=== PATIENT | female | born 1930 | race Caucasian/White ===

== ENCOUNTER 2017-08-15 10:46 | Inpatient (IN) ==
[2017-08-15] MEDS ORDERED: SALINE FLUSH 10ml SYRINGE IVF PRN (11:04)
--- NOTE | 2017-08-15 11:09 | Emergency Department Report ---
Fall HPI - General Chief Complaint: Medical Emergency Stated Complaint: Falls Time Seen by Provider: 08/15/17 10:49 Source: patient, family, EMS, RN notes reviewed, old records reviewed Mode of arrival: EMS Limitations: no limitations - History of Present Illness HPI Narrative: 86yo woman presented to the ER by EMS for evaluation after a fall. Pt has fallen 3x in the last 24 hrs at her NH. Last fall was just prior to arrival. Pt has a h/o a-fib and CHF. Is scheduled for an ablation next month. Was recently placed on lasix and metoprolol. 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 complaint: fall Onset (ago): hour(s) Fall from: standing Fall witnessed: yes, by family Place fall occurred: home Loss of consciousness: none Prolonged down time: no Symptoms prior to fall: lightheadedness, dizziness Context: new medication Associated symptoms (after fall): denies - Related Data Home Medications Medication Instructions Recorded Confirmed Acetaminophen [Acetaminophen Extra 1,000 mg PO BID PRN 08/15/17 08/15/17 Strength] CephALEXin [Keflex 500 mg] 500 mg PO UNK 08/15/17 08/15/17 Chlorthalidone 25 mg PO DAILY 08/15/17 08/15/17 Furosemide [Lasix 20 mg Tab] 20 mg PO DAILY 08/15/17 08/15/17 METHOTREXATE 2.5mg TAB 20 mg PO WEEKLY 08/15/17 08/15/17 [Methotrexate] Metoprolol Tartrate 50 mg PO BID 08/15/17 08/15/17 Potassium Chloride [K-DUR 10 mEq 10 meq PO DAILY 08/15/17 08/15/17 Tablet] dilTIAZem HCl [Dilt-Xr] 180 mg PO DAILY 08/15/17 08/15/17 Previous Rx's Medication Instructions Recorded Apixaban [Eliquis] 2.5 mg PO BID #60 tab 04/21/17 Nitroglycerin [Nitrostat] 0.4 mg SL Q5MIN3 PRN #20 tab 04/21/17 Allergies Allergy/AdvReac Type Severity Reaction Status Date / Time penicillamine Allergy Intermediate DESTROYED Verified 08/15/17 14:34 WHITE CELLS Review of Systems All systems: reviewed and negative except as stated (3 falls in the last 12 hours) [facility] Patient Stated Medical History Cardiac Arrhythmia Yes: AFib Gastroesophageal Reflux Yes Disease Osteoarthritis Yes Other Musculoskeletal Yes: Rheumatoid arthritis Shingles Yes: Winter 2015 Surgical History: Bilateral mastectomy. Bilateral knee replacements - Social History Smoking status: Never smoker Substance use type: does not use Alcohol intake frequency: does not drink Household members: spouse Current occupational status: retired Current residence: Apartment/Private Home Physical Exam - Limitations Limitations: no limitations - General General appearance: alert, in no apparent distress - Normal Exams: Head:: Normocephalic without trauma Eyes:: Pupils are PERRLA w/ EOMI, No scleral icterus, irritation, or foreign bodies noted ENMT:: No facial trauma, nasal exudates, pharyngeal erythema, or exudates are noted Neck:: Full range of motion, without adenopathy Lymphatic:: No lymphadenopathy Musculoskeletal:: No tenderness Integumentary:: No rashes, hives, or bruising noted Neurological:: Patient is alert, and oriented Psychiatric:: Patient exhibits, appropriate attention - Chest Chest inspection: Present: normal inspection, symmetric chest wall rise. Absent : tenderness, rash - Respiratory Respiratory exam: Present: normal lung sounds bilaterally. Absent: respiratory distress, wheezes, stridor, prolonged expiratory phase, crackles - Cardiovascular Cardiovascular exam: Present: regular rate, irregular rhythm (A-fib), normal heart sounds, +S1, +S2. Absent: normal rhythm, systolic murmur, diastolic murmur, rubs, gallop, clicks, +S3, +S4 Course - Consultations Consultation #1: Dr. José: Pts renal fx is stable, based on labs today. is a great resource, but has had some noticeable decline recently. Would lean towards observation with re-eval of current medication regimen. Time: 13:06 Consultation #2: Hospitalist: Will admit for obs and electrolyte correction. Time: 13:27 Vital Signs Temperature 98.7 F 08/15/17 10:48 Pulse Rate 121 H 08/15/17 10:48 Respiratory Rate 18 08/15/17 10:48 Blood Pressure 137/76 08/15/17 10:48 Pulse Oximetry 96 08/15/17 10:48 Temperature 98.1 F 08/15/17 14:16 Pulse Rate 94 08/15/17 14:16 Respiratory Rate 16 08/15/17 14:16 Blood Pressure 129/62 08/15/17 14:16 Pulse Oximetry 96 08/15/17 14:16 Fall - MDM Narrative Medical decision making narrative: Pt with hypokalemia, hypochloremia, and orthostatic hypotension. Discussed pt with PCM, who recommended observation and electrolyte replacement with ?med adjustment. Discussed with hospitalist, who agreed to admit for electrolyte replacement and review of meds. - Differential Diagnosis Likely: syncope (Electrolyte abn, Dehydration, arrhythmia) - Medical Records Attestation: I reviewed the patient's medical records. - Lab Data Attestation: I reviewed the patient's lab results. Result diagrams: 08/15/17 11:13 08/15/17 11:13 Lab Results 08/15/17 08/15/17 08/15/17 Range/Units 11:13 11:13 12:35 WBC 5.8 (4.5-11.0) T/MM3 RBC 3.84 L (4.00-5.20) M/MM3 Hgb 12.2 (12-16) GM/DL Hct 37.1 (36-46) % MCV 96.6 (80-100) UM3 MCH 31.8 (26-34) UUG MCHC 32.9 (31-37) GM/DL RDW Std Deviation 54.0 H (36.9-50.2) FL Plt Count 216 (130-400) T/MM3 MPV 9.7 (9.4-12.4) UM3 Immature Gran % (Auto) 0.2 (0.0-0.5) % Neut % (Auto) 71.9 H (33-66) % Lymph % (Auto) 12.1 L (23-45) % [place] % (Auto) 15.4 H (0-9.0) % Eos % (Auto) 0.2 (0-4) % Baso % (Auto) 0.2 (0-2) % Neut # (Auto) 4.2 (1.8-7.7) T/MM3 Lymph # (Auto) 0.7 L (1-4.8) T/MM3 [place] # (Auto) 0.9 H (0-0.8) T/MM3 Eos # (Auto) 0.0 (0-0.5) T/MM3 Baso # (Auto) 0.0 (0-0.2) T/MM3 Abs Immat Gran (auto) 0.01 (0.00-0.03) T/MM3 Turbidity < 20 (0-20) Sodium 139 (134-144) MEQ/L Potassium 2.6 L* (3.6-5) MEQ/L Chloride 91 L (98-107) MEQ/L Carbon Dioxide 35 H (22-30) MEQ/L Anion Gap 13 (5-15) MEQ/L BUN 26.0 H (7-17) MG/DL Creatinine 0.8 (0.7-1.2) mg/dL GFR Calculation 68 BUN/Creatinine Ratio 33 H (6-26) RATIO Glucose 108 (65-110) MG/DL Calculated Osmolality 274 (261-280) MOSM/KG Calcium 10.5 H (8.4-10.2) MG/DL Icterus Index < 2 (0-7) Specimen Hemolysis < 15 (0-25) Ur Collection Type Urine, cath straight Urine Color Yellow (YELLOW) Urine Clarity Clear Urine pH 6.5 (5.0-8.0) Ur Specific [place] 1.015 (1.015-1.025) Urine Protein Negative (NEGATIVE) Urine Glucose (UA) Negative (NEGATIVE) Urine Ketones Negative (NEGATIVE) Urine Occult Blood Negative (NEGATIVE) Urine Nitrate Negative (NEGATIVE) Urine Bilirubin Negative (NEGATIVE) Urine Urobilinogen 0.2 (NORMAL) EU/DL Ur Leukocyte Esterase Negative (NEGATIVE) Urinalysis Comment Microscopic not ind. - Radiology Data Attestation: I reviewed the patient's radiology results. CXR: IMPRESSION: 1. Chronic emphysematous lung changes with changes suggesting an acute superimposed bronchitis. 2. Minimal acute infiltrate is suggested in the medial right lung base. 3. Bony thorax shows no obvious acute traumatic variation. - EKG Data EKG #1 EKG attestation: Yes: I reviewed and interpreted this EKG. EKG shows normal: axis, intervals Rate: tachycardia Rhythm: A.Fib Voltage: c/w LVH Interpretation: nonspecific ST-T wave changes Disposition Clinical Impression: Hypokalemia, Hypochloremia, Orthostatic hypotension Disposition: 02 To [facility] Condition: Improved Time of Disposition: 13:43 - Seen By: physician
--- NOTE | 2017-08-15 12:40 | XRay Report ---
EXAM: XR chest 1V HISTORY: Fall COMPARISON: Prior chest x-ray dated 04/20/2017 FINDINGS: The lung lemus are hyperinflated. There are increased interstitial markings bilaterally that appear chronic. There is increase in the central bronchovascular markings with peribronchial cuffing. Bronchiectasis is seen at the lung bases. There is a possible early acute infiltrate in the medial right lung base. The heart remains within normal limits size. There is no evidence mediastinal widening in the trachea is midline. The pulmonary vascularity is normal. The costophrenic angles are clear. The bony thorax is stable again showing degenerative changes and an old healed left proximal humerus fracture. No definite acute traumatic variation is identified involving the bony thorax. There are old healed left-sided rib fracture deformities. Surgical clips are again seen under the right hemidiaphragm. IMPRESSION: 1. Chronic emphysematous lung changes with changes suggesting an acute superimposed bronchitis. 2. Minimal acute infiltrate is suggested in the medial right lung base. 3. Bony thorax shows no obvious acute traumatic variation.. .
[2017-08-15] MEDS ORDERED: SALINE FLUSH 10ml SYRINGE IV ONE (14:01)
[2017-08-15] MEDS ORDERED: MIDAZOLAM 2mg/2ml INJECTION IVP ONE (14:01)
[2017-08-15] MEDS ORDERED: FentaNYL 100 MCG/2 ML INJECTION IVP ONE (14:01)
[2017-08-15 14:21] VITALS: BMI 22.5
--- NOTE | 2017-08-15 15:09 | History & Physical Report ---
History of Present Illness Date: 08/15/17 Chief complaint: "black out" HPI: Mirlande Sam is an 86 year old woman who sees Dr. Davis for A-fib, which was diagnosed on 04/20/17. She had a syncopal episode that day, during which she had nausea, diaphoresis, chest pain, and shortness of breath. She was admitted and had an echo which showed an EF of 65% and heart catheterization that was negative for significant coronary disease (stenting was not indicated) . She was started on Eliquis at that time, as well as a beta brigitte for rate control. She had been getting along well at home, until the evening of 08/14/17, when she vomited after eating a peanut butter sandwich. She did not have any chest pain, dyspnea, dizziness, or diaphoresis at that time. She went to bed, and twice during the night, as she was walking back to her bed from the bathroom , she "blacked out". Around 1000 on 08/15/17, as she was walking towards the table, it happened again. Unlike the March syncopal event, she had no prodrome at all. She believes that she was unconscious for about a minute each time. She felt a little short of breath when she awoke, but her dyspnea completely resolved after a few minutes. She has small abrasions to her right wrist, which she thinks she injured after passing out early this morning (she tends to bruise/bleed easily since she's on Eliquis). She occasionally has palpitations. She hasn't eaten anything today but denies abdominal pain or nausea. She admits to having a poor appetite, however. She denies any visual changes (ie blurred or double vision), headaches, paresthesias, or stroke-like symptoms. She has had a predominantly nonproductive cough for the last month, without associated fever/chills, congestion, or sore throat. She denies diarrhea or constipation. She denies dysuria. She has not had leg swelling. She recently finished up seeing PT for her back. She has joint deformities secondary to rheumatoid arthritis, for which she takes methotrexate. 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 Following the 3rd syncopal event, 911 was activated and she was transported to [facility] ED. She was tachycardic with a rate of 121 and was given NS bolus 500 mL. She was afebrile and normotensive. She was found to be severely hypokalemic at 2.6 and received oral potassium. CBC and UA were unremarkable. CXR showed possible bronchitis, possible acute infiltrate to right lung base. Her PCP, Dr. José, was contacted from the ED. Concerned about Mirlande' 's recent decline, combined with hypokalemia and syncopal events, recommended admission. Therefore, the hospitalist service was contacted and accepted the patient to observation status. 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 Davis - EF 65%, recommended medical management. Left breast biopsy (2010) - Dr. Summers. 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 Summers. Bilateral knee replacements. Bilateral hip replacements followed by bilateral hip reconstructive surgeries Family History Updates: Mother in her 90s of heart disease. Father also had heart disease and in his 80s. A younger brother has prostate cancer. 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 Davis Medications Home Medications Medication Instructions Recorded Confirmed Type Apixaban [Eliquis] 2.5 mg PO BID #60 tab 04/21/17 08/15/17 Rx Nitroglycerin [Nitrostat] 0.4 mg SL Q5MIN3 PRN #20 tab 04/21/17 08/15/17 Rx Acetaminophen [Acetaminophen Extra 1,000 mg PO BID PRN 08/15/17 08/15/17 History Strength] CephALEXin [Keflex 500 mg] 500 mg PO UNK 08/15/17 08/15/17 History Chlorthalidone 25 mg PO DAILY 08/15/17 08/15/17 History Furosemide [Lasix 20 mg Tab] 20 mg PO DAILY 08/15/17 08/15/17 History METHOTREXATE 2.5mg TAB 20 mg PO WEEKLY 08/15/17 08/15/17 History [Methotrexate] Metoprolol Tartrate 50 mg PO BID 08/15/17 08/15/17 History Potassium Chloride [K-DUR 10 mEq 10 meq PO DAILY 08/15/17 08/15/17 History Tablet] dilTIAZem HCl [Dilt-Xr] 180 mg PO DAILY 08/15/17 08/15/17 History Allergies Allergy/AdvReac Type Severity Reaction Status Date / Time penicillamine Allergy Intermediate DESTROYED Verified 08/15/17 14:34 WHITE CELLS Exam Vital Signs: Temperature 98.7 F 08/15/17 10:48 Pulse Rate 94 08/15/17 14:00 Respiratory Rate 22 08/15/17 14:00 Blood Pressure 113/75 08/15/17 14:00 Pulse Oximetry 96 08/15/17 14:00 Telemetry Rhythm: A-fib Height/Weight/BMI: Height 1.52 m Weight 52.3 kg Body Mass Index 22.5 - Constitutional Present: no acute distress, well nourished, well developed, thin - Routine HEENT Exam Head: Present: normocephalic Eye: Present: EOMI, PERRL, normal accommodation, conjunctivae pink. Absent: conjunctival icterus, scleral injection - Routine Neck Exam Present: supple. Absent: lymphadenopathy - Routine Respiratory Exam Present: decreased breath sounds, crackles (B/L bases) - Routine Cardiovascular Exam Present: irregularly irregular - Routine Abdominal Exam Present: soft, normoactive bowel sounds, non distended, non tender - Routine Extremities Exam Present: no edema, pulses intact. Absent: calf tenderness Comments: rheumatoid deformities to both hands/fingers, feet - Routine Back/Spine/Pelvis Exam Back/Spine: Present: kyphosis (prominent thoracic spine) - Routine Skin Exam Present: intact, dry, warm, wounds (small contusion/abrasions to right wrist), ecchymosis (both forearms - small areas of bruising) - Routine Neurological Exam Present: alert, oriented X3, CN II-XII intact, motor deficit (deltoids, bicep/ tricep, hip flex, knee ext/flex and ankle dorsiflex are weak but equal b/l. Her left great toe is deviated plantar flexed compared to right, which she states is from an old injury.), moving all extremities, vision grossly intact, hearing grossly intact, normal speech. Absent: sensory deficit, altered mental status, nystagmus, facial asymmetry, tremors - Routine Psychiatric Exam Present: normal affect, normal thought process, cooperative Results - Labs CBC & Chem 7: 08/15/17 11:13 08/15/17 15:44 - ECG Data Tracing #1 I reviewed this ECG and interpreted as documented below: A-fib ST depression ant-lat leads LVH occ PVC Rt axis - Imaging and Cardiology Chest x-ray Status: image reviewed by me Additional comments: FINDINGS: The lung lemus are hyperinflated. There are increased interstitial markings bilaterally that appear chronic. There is increase in the central bronchovascular markings with peribronchial cuffing. Bronchiectasis is seen at the lung bases. There is a possible early acute infiltrate in the medial right lung base. The heart remains within normal limits size. There is no evidence mediastinal widening; the trachea is midline. The pulmonary vascularity is normal. The costophrenic angles are clear. The bony thorax is stable again showing degenerative changes and an old healed left proximal humerus fracture. No definite acute traumatic variation is identified involving the bony thorax. There are old healed left-sided rib fracture deformities. Surgical clips are again seen under the right hemidiaphragm. IMPRESSION: 1. Chronic emphysematous lung changes with changes suggesting an acute superimposed bronchitis. 2. Minimal acute infiltrate is suggested in the medial right lung base. 3. Bony thorax shows no obvious acute traumatic variation.. Assessment and Plan (1) Syncope Current visit: Yes Status: Acute Assessment and Plan: ADMISSION DIAGNOSES Syncope x3 Severe hypokalemia [2.6], POA Hypercalcemia [10.5], POA Elevated CO2 [35], POA Nausea CHRONIC AND ASSOCIATED CONDITIONS Chronic A-fib, on Eliquis Rheumatoid arthritis, on Methotrexate GERD Depression PLAN Admit, observation status. Trend troponin x3; monitor rhythm on telemetry. Continue metoprolol and diltiazem for rate control. Check TSH. Consult Dr. Davis - discussed with Henny Rousseau APRN. Also inquired about medications, as she is on both a thiazide and loop diuretic. Question whether or not elevated CO2 is r/t diuretic use (perhaps over-diuresed? ). Will give another 500 mL of NS. Monitor respiratory status closely - she had bibasilar crackles on exam but review of CXR showed bronchiectasis to lung bases ; possible bronchitis; possible infiltrate to right lung base (though other than cough x1 month, pt does not have clinical symptoms of pneumonia). Zofran PRN nausea. Hypokalemia - IV bolus ordered. Check magnesium level. Hold Lasix for now. Recheck BMP at next troponin draw. Hypercalcemia - recheck tomorrow am following IVF; will hold chlorthalidone as well which may also cause hypercalcemia. Continue Eliquis for A-fib. Start Protonix d/t hx of GERD. Advanced directives: Son Saqib is DPOA. She has a living will. Requests DNR status and would like to have DNR order from Dr. José upon discharge back to [facility]. DVT Prophylaxis: Eliquis GI Prophylaxis: Protonix Resuscitation Status: Do Not Resuscitate - Physician Narrative Narrative: Date: 08/15/17 Time: 1704 I have independently evaluated and examined this patient. I reviewed the chart, the patient's history, and the ADJUSTER AND INSPECTOR/PA's documented findings as above. We discussed and formulated the assessment and plan as above with additions as below. The patient reports that she has scheduled for cardioversion by Dr. Baliey in the morning. In addition to the above history, she reports she has had a dry cough since about March of last year. In addition she has dyspnea on exertion and needs to stop to catch her breath. She reports it resolves fairly quickly. On physical exam, she has bilateral lower lobe velcro crackles She believes she has been on methotrexate for about 40 years. 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 Discussed with Dr. José, will consult Dr. Longoria for evaluation for possible pulmonary fibrosis secondary to methotrexate. Hospital Course Summary Disclaimer: The visit summary below is not to be considered part of the above Progress Note. Hospital Course: 08/15/17 Admit, observation status. Trend troponin x3; monitor rhythm on telemetry. Continue metoprolol and diltiazem for rate control. Check TSH. Consult Dr. Davis - discussed with Henny Rousseau APRN. Also inquired about medications, as she is on both a thiazide and loop diuretic. Question whether or not elevated CO2 is r/t diuretic use (perhaps over-diuresed? ). Will give another 500 mL of NS. Monitor respiratory status closely - she had bibasilar crackles on exam but review of CXR showed bronchiectasis to lung bases ; possible bronchitis; possible infiltrate to right lung base (though other than cough x1 month, pt does not have clinical symptoms of pneumonia). Zofran PRN nausea. Hypokalemia - IV bolus ordered. Check magnesium level. Hold Lasix for now. Recheck BMP at next troponin draw. Hypercalcemia - recheck tomorrow am following IVF; will hold chlorthalidone as well which may also cause hypercalcemia. Continue Eliquis for A-fib. Start Protonix d/t hx of GERD. Advanced directives: Son Saqib is DPOA. She has a living will. Requests DNR status and would like to have DNR order from Dr. José upon discharge back to [facility].
[2017-08-15] MEDS: LIDOCAINE 1% INJ 10 MG, POTASSIUM CHLORIDE INJ 10 MEQ in NS 100 ML IV SCH ×4 (15:21→19:42)
[2017-08-15] MEDS ORDERED: ONDANSETRON 4 MG/2 ML INJECTION IVP PRN (15:45)
--- NOTE | 2017-08-15 16:09 | Cardiology Consult Note ---
<Henny Rousseau - Last Filed: 08/17/17 09:37> History of Present Illness Consult date: 08/15/17 Requesting physician: Nelly Goldman Chief complaint: syncope History of present illness: Mirlande is an 86 year old woman who is well known to Dr. Davis with a history of PAF, NR tricuspid regurg, tachycardia, pulmonary HTN and was seen 5 days ago in the clinic for SOA. She was started on Lasix 20mg daily, KCL 10meq daily and Cardizem 180mg daily in addition to her chlorthalidone 25mg daily. She is on Eliquis and Metoprolol. The evening of 08/14/17, she reportedly vomited after eating a peanut butter sandwich. She did not have any chest pain, dyspnea, dizziness, or diaphoresis at that time. She went to bed, and twice during the night, as she was walking back to her bed from the bathroom, she "blacked out". Around 1000 on 08/15/17, as she was walking towards the table, it happened again. She believes that she was unconscious for about a minute each time. She felt a little short of breath when she awoke, but her dyspnea completely resolved after a few minutes. She has small abrasions to her right wrist, which she thinks she injured after passing out early this morning (she tends to bruise/bleed easily since she's on Eliquis). Following the 3rd syncopal event, 911 was activated and she was transported to [facility]. She was tachycardic with a rate of 121 and was given NS bolus 500 mL. She was afebrile and normotensive. She was found to be severely hypokalemic at 2.6 and received oral potassium. CBC and UA were unremarkable. CXR showed possible bronchitis, possible acute infiltrate to right lung base. The hospitalist service was contacted and accepted the patient to observation status and Dr. Davis is consulted and we appreciate the consult. Review of Systems - Constitutional Constitutional: Present: as per HPI - EENMT Eyes: Absent: change in vision Balance: Absent: vertigo - Cardiovascular Cardiovascular: Present: syncope. Absent: chest pain, palpitations Rhythm: Present: abnormal rhythm Vascular: Present: pedal edema - Respiratory Respiratory: Present: as per HPI - Gastrointestinal Gastrointestinal: Present: as per HPI - Genitourinary Genitourinary: Absent: dysuria - Integumentary/Breasts Integumentary: Absent: rash - Neurological Neurological: Present: dizziness - Psychiatric Psychiatric: Present: anxiety, depression - Endocrine Endocrine: Absent: palpitations PFSH Patient Stated Medical History Cataracts Yes: both Glaucoma Yes: beginning Hearing Loss Yes: bilateral hearing aids Cardiac Arrhythmia Yes: AFib Congestive Heart Failure Yes Hypotension Yes Gastroesophageal Reflux Yes Disease Ulcer Yes: at one time Hx Incontinence Yes Osteoarthritis Yes Other Musculoskeletal Yes: Rheumatoid arthritis Shingles Yes: Winter 2015 Depression Yes Surgical History: Heart catheterization (04/20/2017) - Dr. Davis - EF 65%, recommended medical management. Left breast biopsy (2010) - Dr. Summers. 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 Summers. Bilateral knee replacements. Bilateral hip replacements followed by bilateral hip reconstructive surgeries Family History Updates: Mother in her 90s of heart disease. Father also had heart disease and in his 80s. A younger brother has prostate cancer. 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 Current residence: [facility] ([facility] Medications Home Medications Medication Instructions Recorded Confirmed Type Apixaban [Eliquis] 2.5 mg PO BID #60 tab 04/21/17 08/15/17 Rx Nitroglycerin [Nitrostat] 0.4 mg SL Q5MIN3 PRN #20 tab 04/21/17 08/15/17 Rx Acetaminophen [Acetaminophen Extra 1,000 mg PO BID PRN 08/15/17 08/15/17 History Strength] CephALEXin [Keflex 500 mg] 500 mg PO UNK 08/15/17 08/15/17 History Chlorthalidone 25 mg PO DAILY 08/15/17 08/15/17 History Furosemide [Lasix 20 mg Tab] 20 mg PO DAILY 08/15/17 08/15/17 History METHOTREXATE 2.5mg TAB 20 mg PO WEEKLY 08/15/17 08/15/17 History [Methotrexate] Metoprolol Tartrate 50 mg PO BID 08/15/17 08/15/17 History Potassium Chloride [K-DUR 10 mEq 10 meq PO DAILY 08/15/17 08/15/17 History Tablet] dilTIAZem HCl [Dilt-Xr] 180 mg PO DAILY 08/15/17 08/15/17 History Allergies Allergy/AdvReac Type Severity Reaction Status Date / Time penicillamine Allergy Intermediate DESTROYED Verified 08/15/17 14:34 WHITE CELLS Exam Vital signs: Temperature 98.1 F 08/15/17 14:16 Pulse Rate 94 08/15/17 14:16 Respiratory Rate 16 08/15/17 14:16 Blood Pressure 129/62 08/15/17 14:16 Pulse Oximetry 96 08/15/17 14:16 - Constitutional no acute distress, well nourished, cooperative - Routine HEENT Exam Head: Present: normocephalic ENT: Present: mucous membranes moist - Routine Neck Exam Absent: JVD, carotid bruit - Routine Chest/Breast/Axilla Exam Chest wall: Absent: tenderness - Routine Respiratory Exam Present: rales (bibasilar). Absent: CTA bilaterally - Routine Cardiovascular Exam Present: tachycardia, irregularly irregular - Routine Abdominal Exam Present: soft, normoactive bowel sounds - Routine Extremities Exam Present: no edema, pulses intact - Routine Skin Exam Present: intact, dry, warm - Routine Neurological Exam Present: alert, oriented X3 - Routine Psychiatric Exam Present: normal affect, normal thought process Results 08/17/17 04:51 08/17/17 04:51 Intake and Output 08/15/17 08/15/17 08/15/17 06:59 14:59 22:59 Other: Weight 115 lb 4.828 oz Patient Weight 08/16/17 06:59 Weight 115 lb 4.828 oz - Imaging and Cardiology Imaging & Cardiology Narrative: Date of Exam: 08/15/17 Ordering Provider: Jed Cardozo DO Type of Exam(s): XR chest 1V Reason for Exam(s): Fall EXAM: XR chest 1V HISTORY: Fall COMPARISON: Prior chest x-ray dated 04/20/2017 FINDINGS: The lung lemus are hyperinflated. There are increased interstitial markings bilaterally that appear chronic. There is increase in the central bronchovascular markings with peribronchial cuffing. Bronchiectasis is seen at the lung bases. There is a possible early acute infiltrate in the medial right lung base. The heart remains within normal limits size. There is no evidence mediastinal widening in the trachea is midline. The pulmonary vascularity is normal. The costophrenic angles are clear. The bony thorax is stable again showing degenerative changes and an old healed left proximal humerus fracture. No definite acute traumatic variation is identified involving the bony thorax. There are old healed left-sided rib fracture deformities. Surgical clips are again seen under the right hemidiaphragm. IMPRESSION: 1. Chronic emphysematous lung changes with changes suggesting an acute superimposed bronchitis. 2. Minimal acute infiltrate is suggested in the medial right lung base. 3. Bony thorax shows no obvious acute traumatic variation.. 08/15/17 16:18 08/17/17 09:41 Date of Exam: 08/15/17 Type of Exam(s): US echo doppler complete DATE OF PROCEDURE August 15, [address] Nelly Goldman This is a two-dimensional echo with spectral Doppler, color-flow and M-mode. It was obtained in a patient with A-Fib with rapid ventricular rate. Left atrial dimension is increased. Left ventricular end-diastolic dimension is normal. Left ventricle wall thickness is increased. LV systolic function is normal with ejection fraction of 62%. Right atrium is dilated. Right ventricle is normal. Aortic root dimension is normal. Mitral annulus is calcified. Mitral valve leaflets are normal with mild mitral regurgitation. Aortic valve shows fibrocalcific changes with no stenosis or insufficiency. Tricuspid valve shows moderate tricuspid regurgitation with normal estimated pulmonary artery systolic pressure of 30. Pulmonary valve shows mild pulmonary insufficiency. There is no pericardial effusion. IMPRESSION 1. Normal LV systolic function with ejection fraction of 62%. 2. Biatrial dilation. 3. Concentric left ventricular hypertrophy. 4. Mitral annulus calcification with mild mitral regurgitation. 5. Aortic sclerosis. 6. Moderate tricuspid regurgitation with normal estimated pulmonary artery systolic pressure of 30. 7. Mild pulmonary insufficiency. EKG interpretations - EKG EKG shows: atrial fibrillation (with RVR) Assessment and Plan - Assessment and Plan (1) Atrial fibrillation with RVR Current visit: No Status: Acute NPO at midnight for DCCV tomorrow am - Continue Eliquis for anticoagulation - 2D echo - TSh and Mag - EKG if converts (2) Hypokalemia Current visit: Yes Status: Acute Replace potassium - Monitor electrolytes (3) Rheumatoid arthritis Current visit: No Status: Chronic (4) Syncope Current visit: Yes Status: Acute Hold diuretics -2D echo: Normal LV systolic function with ejection fraction of 62%, Biatrial dilation, Concentric left ventricular hypertrophy, Mitral annulus calcification with mild mitral regurgitation, Aortic sclerosis, Moderate tricuspid regurgitation with normal estimated pulmonary artery systolic pressure of 30, Mild pulmonary insufficiency. - Assessment and Plan Syncope: Hold diuretics -2D echo: Normal LV systolic function with ejection fraction of 62%, Biatrial dilation, Concentric left ventricular hypertrophy, Mitral annulus calcification with mild mitral regurgitation, Aortic sclerosis, Moderate tricuspid regurgitation with normal estimated pulmonary artery systolic pressure of 30, Mild pulmonary insufficiency. A Fib with RVR: NPO at midnight for DCCV tomorrow am - Continue Eliquis for anticoagulation - 2D echo - TSh and Mag - EKG if converts Hypokalemia: Replace potassium - Monitor electrolytes RA Thank you for allowing us to participate in the care of this patient. Hospital Course Summary Disclaimer: The visit summary below is not to be considered part of the above Progress Note. <Isiah Davis - Last Filed: 08/17/17 13:08> Exam Vital signs: Temperature 97.6 F 08/17/17 12:00 Pulse Rate 89 08/17/17 12:00 Respiratory Rate 18 08/17/17 12:00 Blood Pressure 108/65 08/17/17 12:00 Pulse Oximetry 99 08/17/17 12:00 Results 08/17/17 04:51 08/17/17 04:51 CBC 08/17/17 Range/Units 04:51 WBC 3.7 L (4.5-11.0) T/MM3 RBC 3.46 L (4.00-5.20) M/MM3 Hgb 10.8 L D (12-16) GM/DL Hct 33.3 L (36-46) % Plt Count 186 (130-400) T/MM3 Comprehensive Metabolic Panel 08/17/17 Range/Units 04:51 Sodium 135 (134-144) MEQ/L Potassium 2.9 L* (3.6-5) MEQ/L Chloride 98 (98-107) MEQ/L Carbon Dioxide 27 (22-30) MEQ/L BUN 21.0 H (7-17) MG/DL Creatinine 0.7 (0.7-1.2) mg/dL Glucose 100 (65-110) MG/DL Calcium 7.7 L D (8.4-10.2) MG/DL Intake and Output 0308/17/17 08/17/17 22:59 06:59 14:59 Intake Total 650 / 650 120 / 120 438.52 / 438.52 Output Total 125 / 125 100 / 100 400 / 400 Balance 525 / 525 38.52 / 38.52 Intake: IV 250 / 250 438.52 / 438.52 Amiodarone 450 mg In NS 250ml 250 / 250 250 ml @ 1 MG/MIN 33.33 mls/hr IV .Q7H31M [facility] Rx#:[id number] Amiodarone 900 mg In NS 500ml 238.52 / 238.52 500 ml @ 0.5 MG/MIN 16.66 mls/ hr IV .Q24H [facility] Rx#:[id number] Lidocaine 1% Inj 10 mg 200 / 200 Potassium Chloride Inj 10 meq In Ns 100 ml @ 100 mls/hr IV . Q1H [facility] Rx#:[id number] Oral 400 / 400 120 / 120 Output: Urine 125 / 125 100 / 100 400 / 400 Other: Urine Appearance Clear Clear Clear Urine Color Yellow Pale Yellow Yellow Urine Odor Normal Normal Strong Stool Color Brown Stool Consistency Soft Formed Size of Bowel Movement Large # Voids 200 # Bowel Movements 1 Weight 53.8 kg Patient Weight 08/18/17 06:59 Weight 53.8 kg Assessment and Plan - Attestation Attestation Narrative: 08/17/17 13:08 Recommendation After examining the patient I agree with the above assessment. I am involved in the formulation of the patient's plan of care. - Assessment and Plan (1) Atrial fibrillation with RVR Current visit: No Status: Acute (2) Rheumatoid arthritis Current visit: No Status: Chronic (3) Hypokalemia Current visit: Yes Status: Acute (4) Syncope Current visit: Yes Status: Acute Hospital Course Summary Disclaimer: The visit summary below is not to be considered part of the above Progress Note.
[2017-08-15] MEDS ORDERED: Tdap VACCINE ADMINISTR CHARGE INJ ONE (18:30)
[2017-08-15] MEDS ORDERED: DIPHTHERIA IM ONE (18:30)
[2017-08-15] MEDS ORDERED: BOOSTRIX IM ONE (18:30)
[2017-08-15] MEDS ORDERED: [UNRECOGNIZED DRUG - OTHER] IM ONE (18:30)
[2017-08-15] MEDS ORDERED: TETANUS IM ONE (18:30)
[2017-08-15] MEDS: METOPROLOL TARTRATE 50 MG PO SCH (21:49)
[2017-08-15] MEDS: APIXABAN 2.5 MG PO SCH (21:49)
[2017-08-16] MEDS: PANTOPRAZOLE 20 MG TABLET PO SCH (05:33)
--- NOTE | 2017-08-16 08:11 | CT Scan Report ---
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 Coronal and sagittal two-dimensional reformats. Automated Exposure Control and Iterative Reconstruction dose reducing techniques were utilized. Findings: Mild reticular subpleural changes in the right lower lobe. A couple small subpleural tags on the order of 2 to 3 mm in size in the right upper lobe. Slightly larger subpleural nodule in the right upper lobe on axial image #20 measuring 4 mm in size. Small subpleural times in the right middle lobe as well. Calcified granuloma in the right lower lobe near the costophrenic angle. Small blebs in the right upper lobe. Region of scarring in the lingula. Noncalcified 4-mm nodule in the left upper lobe on image #20. Left lower lobe nodule on image 48 measuring 4 to 5 mm in size appears noncalcified as well. No acute consolidative pneumonia. No pleural effusion or pneumothorax. No axillary or mediastinal adenopathy. Enlarged multinodular thyroid gland. Heart is severely enlarged without pericardial effusion. The upper abdomen shows no acute findings. Impression: 1. Areas of senescent change and mild subpleural scarring in the lungs. This does not have the appearance of significant pulmonary fibrosis or interstitial lung disease. 2. Scattered small pulmonary nodules probably representing granulomas. .
[2017-08-16] MEDS ORDERED: AMIODARONE 150 MG in NS 100 ML IV ONE (08:52)
[2017-08-16] MEDS ORDERED: [UNRECOGNIZED DRUG - OTHER] IM ONE (09:00)
[2017-08-16] MEDS ORDERED: BOOSTRIX IM ONE (09:00)
[2017-08-16] MEDS ORDERED: DIPHTHERIA IM ONE (09:00)
[2017-08-16] MEDS ORDERED: DILTIAZEM CD 180 MG PO SCH (09:00)
[2017-08-16] MEDS ORDERED: TETANUS IM ONE (09:00)
[2017-08-16] MEDS ORDERED: AMIODARONE 450 MG in NS 250ml 250 ML IV SCH (09:00)
--- NOTE | 2017-08-16 09:11 | Echocardiogram ---
DATE OF PROCEDURE August 15, [address] Nelly Goldman This is a two-dimensional echo with spectral Doppler, color-flow and M-mode. It was obtained in a patient with A-Fib with rapid ventricular rate. Left atrial dimension is increased. Left ventricular end-diastolic dimension is normal. Left ventricle wall thickness is increased. LV systolic function is normal with ejection fraction of 62%. Right atrium is dilated. Right ventricle is normal. Aortic root dimension is normal. Mitral annulus is calcified. Mitral valve leaflets are normal with mild mitral regurgitation. Aortic valve shows fibrocalcific changes with no stenosis or insufficiency. Tricuspid valve shows moderate tricuspid regurgitation with normal estimated pulmonary artery systolic pressure of 30. Pulmonary valve shows mild pulmonary insufficiency. There is no pericardial effusion. IMPRESSION 1. Normal LV systolic function with ejection fraction of 62%. 2. Biatrial dilation. 3. Concentric left ventricular hypertrophy. 4. Mitral annulus calcification with mild mitral regurgitation. 5. Aortic sclerosis. 6. Moderate tricuspid regurgitation with normal estimated pulmonary artery systolic pressure of 30. 7. Mild pulmonary insufficiency. MTDD
--- NOTE | 2017-08-16 09:32 | Progress Note ---
- Date 08/16/17 Subjective: Mirlande was seen just after cardioversion. She was successfully converted to sinus with occasional PACs and PVCs. She is still sedated but opens her eyes and is able to follow simple commands. She denies any pain. Objective Vital signs: Temperature 99.5 F 08/16/17 07:30 Pulse Rate 58 L 08/16/17 09:01 Respiratory Rate 20 08/16/17 09:01 Blood Pressure 90/52 08/16/17 09:01 Pulse Oximetry 99 08/16/17 09:01 Height/Weight/BMI: Height 1.52 m Weight 52.7 kg Body Mass Index 22.5 - Constitutional Present: no acute distress, well nourished, well developed, thin - Routine HEENT Exam Head: Present: normocephalic - Routine Respiratory Exam Present: decreased breath sounds (anteriorly) - Routine Cardiovascular Exam Present: RRR, S1, S2, irregular rhythm - Routine Abdominal Exam Present: soft, normoactive bowel sounds, non distended, non tender - Routine Extremities Exam Present: edema (trace to ankles), pulses intact - Routine Skin Exam Present: intact, dry, warm - Routine Neurological Exam Absent: alert (drowsy; she is waking up from sedation but able to follow commands) - Routine Psychiatric Exam Present: cooperative Results - Labs CBC & Chem 7: 08/15/17 11:13 08/16/17 04:06 Assessment and Plan (1) Syncope Current visit: Yes Status: Acute Assessment and Plan: ADMISSION DIAGNOSES Syncope x3 Severe hypokalemia [2.6], POA Hypercalcemia [10.5], POA, resolved with IVF Elevated CO2 [35], POA Nausea S/P successful DCCV on 08/16/17 to sinus with PACs/PVCs CHRONIC AND ASSOCIATED CONDITIONS Chronic A-fib, on Eliquis Rheumatoid arthritis, on Methotrexate GERD Depression PLAN Underwent successful cardioversion this am. Dr. Davis plans to start her on Amiodarone. K improved to 3.5 and will continue replacement orally. Mg 1.5 - will order IV replacement. CO2 improved to 30 (previously 35). Calcium is back to normal level 8.8. TSH was low at 0.32, will check free T4/T3. She is not on any thyroid replacement. Continue to hold diuretics for now. Dr. Longoria consulted for possible pulmonary fibrosis 2/2 methotrexate use. DVT Prophylaxis: Eliquis GI Prophylaxis: Protonix Resuscitation Status: Do Not Resuscitate - Physician Narrative Narrative: Date: 08/16/17 Time: 09 I have independently evaluated and examined this patient. I reviewed the chart, the patient's history, and the RECORDS OFFICER/PA's documented findings as above. We discussed and formulated the assessment and plan as above with additions as below. Discussed patient's care with her who is a retired physician. The patient is currently on IV amiodarone and IV fluids. After cardioversion as an normal sinus rhythm with occasional PACs and couplets. Hospital Course Summary Disclaimer: The visit summary below is not to be considered part of the above Progress Note. Hospital Course: 08/15/17 Admit, observation status. Trend troponin x3; monitor rhythm on telemetry. Continue metoprolol and diltiazem for rate control. Check TSH. Consult Dr. Davis - discussed with Henny Rousseau APRN. Also inquired about medications, as she is on both a thiazide and loop diuretic. Question whether or not elevated CO2 is r/t diuretic use (perhaps over-diuresed? ). Will give another 500 mL of NS. Monitor respiratory status closely - she had bibasilar crackles on exam but review of CXR showed bronchiectasis to lung bases ; possible bronchitis; possible infiltrate to right lung base (though other than cough since March, pt does not have clinical symptoms of pneumonia). Zofran PRN nausea. Hypokalemia - IV bolus ordered. Check magnesium level. Hold Lasix for now. Recheck BMP at next troponin draw. Hypercalcemia - recheck tomorrow am following IVF; will hold chlorthalidone as well which may also cause hypercalcemia. Continue Eliquis for A-fib. Start Protonix d/t hx of GERD. Advanced directives: Son Saqib is DPOA. She has a living will. Requests DNR status and would like to have DNR order from Dr. José upon discharge back to [facility]. 08/16/17 Underwent successful cardioversion this am. Dr. Davis plans to start her on Amiodarone. K improved to 3.5 and will continue replacement orally. Mg 1.5 - will order IV replacement. CO2 improved to 30 (previously 35). Calcium is back to normal level 8.8. TSH was low at 0.32, will check free T4/T3. She is not on any thyroid replacement. Continue to hold diuretics for now. Dr. Longoria consulted for possible pulmonary fibrosis 2/2 methotrexate use. Addendum entered and electronically signed by Negar Hernandez, ALBA 08/16/17 10: 01: Discussed TSH with Dr. Worley -- recommends to check Free T4, but typically older adults will tend to have drifts in TSH transiently and as long as her arrhythmia is under control, he would likely do nothing more than rechecking a TSH in 2 months (assuming free T4 is stable).
[2017-08-16] MEDS: MAGNESIUM SULFATE 1gm PREMIX 1 GM/100 ML BAG IV SCH ×2 (10:46→11:56)
--- NOTE | 2017-08-16 10:52 | DC Cardioversion ---
DATE OF PROCEDURE August 16, [address] Nelly Goldman The patient is an 86-year lady with history of atrial fibrillation on chronic anticoagulation and poorly controlled rate and was referred for DC cardioversion. Informed consent was obtained after explaining the procedure and the potential risks to the patient who agreed to proceed with the procedure. PROCEDURE 1. DC cardioversion. Conscious sedation was performed using Versed and fentanyl. Anterior-posterior Zoll pads were applied. 360 joules of energy was delivered in a synchronized manner and patient converted from atrial fibrillation to sinus/ectopic atrial rhythm. She tolerated the procedure well with no complications. IMPRESSION 1. Successful DC cardioversion of atrial fibrillation to sinus rhythm. PLAN Will keep her on chronic anticoagulation and start her on antiarrhythmics to maintain sinus. MTDD
--- NOTE | 2017-08-16 12:39 | Pulmonology Consult Note ---
History of Present Illness Consult date: 08/16/17 Reason for consult: pulmonary fibrosis Chief complaint: shortness of breath History of present illness: HPI: Mirlande Sam is an 86 year old lady with history of Rheumatoid arthritis and A-fib. She is hospitalized due to syncopal episodes at home. This was associated with nausea, diaphoresis, chest pain, and shortness of breath. She was admitted and had an echo which showed an EF of 65% and heart catheterization that was negative for significant coronary disease (stenting was not indicated). She has been on Eliquis and a beta brigitte for rate control. She had been getting along well at home, until the evening of 08/14/17, when she vomited after eating a peanut butter sandwich. She did not have any chest pain, dyspnea, dizziness, or diaphoresis at that time. She went to bed, and twice during the night, as she was walking back to her bed from the bathroom , she "blacked out". Around 1000 on 08/15/17, as she was walking towards the table, it happened again. She believes that she was unconscious for about a minute each time. She felt a little short of breath when she awoke, but her dyspnea completely resolved after a few minutes. She denies diarrhea or constipation. She denies dysuria. She has not had leg swelling. She has joint deformities secondary to rheumatoid arthritis, for which she takes methotrexate for many years. 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 Following the 3rd syncopal event , 911 was activated and she was transported to [facility] ED. She was tachycardic with a rate of 121 and was given NS bolus 500 mL. She was afebrile and normotensive. She was found to be severely hypokalemic at 2.6 and received oral potassium. CBC and UA were unremarkable. CXR showed possible acute infiltrate to right lung base. HRCT was done and I reviewed that personally. There is evidence of ground glass opacities consistent with air trapping. There appears to be bronchial wall thickening and bronchiectasis, especially in the RLL, RML. Review of Systems All systems PM: full 10 point ROS is negative except for the symptoms mentioned above Past Medical History Chronic A-fib, on Eliquis Rheumatoid arthritis, on Methotrexate GERD Depression Surgical History: Heart catheterization (04/20/2017) - Dr. Davis - EF 65%, recommended medical management. Left breast biopsy (2010) - Dr. Summers. 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 Summers. Bilateral knee replacements. Bilateral hip replacements followed by bilateral hip reconstructive surgeries Family History Updates: Mother in her 90s of heart disease. Father also had heart disease and in his 80s. A younger brother has prostate cancer. 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 Davis - EF 65%, recommended medical management. Left breast biopsy (2010) - Dr. Summers. 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 Summers. Bilateral knee replacements. Bilateral hip replacements followed by bilateral hip reconstructive surgeries Family History Updates: Mother in her 90s of heart disease. Father also had heart disease and in his 80s. A younger brother has prostate cancer. 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 Current residence: [facility] ([facility] Medications Home Medications Medication Instructions Recorded Confirmed Type Apixaban [Eliquis] 2.5 mg PO BID #60 tab 04/21/17 08/15/17 Rx Nitroglycerin [Nitrostat] 0.4 mg SL Q5MIN3 PRN #20 tab 04/21/17 08/15/17 Rx Acetaminophen [Acetaminophen Extra 1,000 mg PO BID PRN 08/15/17 08/15/17 History Strength] CephALEXin [Keflex 500 mg] 500 mg PO UNK 08/15/17 08/15/17 History Chlorthalidone 25 mg PO DAILY 08/15/17 08/15/17 History Furosemide [Lasix 20 mg Tab] 20 mg PO DAILY 08/15/17 08/15/17 History METHOTREXATE 2.5mg TAB 20 mg PO WEEKLY 08/15/17 08/15/17 History [Methotrexate] Metoprolol Tartrate 50 mg PO BID 08/15/17 08/15/17 History Potassium Chloride [K-DUR 10 mEq 10 meq PO DAILY 08/15/17 08/15/17 History Tablet] dilTIAZem HCl [Dilt-Xr] 180 mg PO DAILY 08/15/17 08/15/17 History Allergies Allergy/AdvReac Type Severity Reaction Status Date / Time penicillamine Allergy Intermediate DESTROYED Verified 08/15/17 14:34 WHITE CELLS Exam Vital signs: Temperature 97.7 F 08/16/17 11:18 Pulse Rate 63 08/16/17 11:52 Respiratory Rate 18 08/16/17 11:18 Blood Pressure 112/60 08/16/17 11:52 Pulse Oximetry 95 08/16/17 11:52 - Constitutional no acute distress - Routine HEENT Exam Head: Present: normocephalic, atraumatic - Routine Neck Exam Present: supple - Routine Respiratory Exam Present: decreased breath sounds, crackles Comments: at bases - Routine Cardiovascular Exam Present: RRR - Routine Abdominal Exam Present: soft. Absent: guarding - Routine Extremities Exam Absent: cyanosis, clubbing Comments: ulnar deviation and swan neck deformities of hands - Routine Skin Exam Present: intact, cyanosis - Routine Neurological Exam Present: alert, oriented X3 Results - Laboratory Findings CBC and BMP: 08/15/17 11:13 08/16/17 04:06 - Diagnostic Findings Chest x-ray: report reviewed, image reviewed CT scan - chest: report reviewed, image reviewed Assessment and Plan (1) Rheumatoid lung disease with rheumatoid arthritis Status: Acute Assessment and plan: HRCT and PFT. We will follow and make recommendations. There is no current evidence for drug-induced pulmonary toxicity. She will not be a candidate for lung biopsy to confirm issues. Current Visit: Yes (2) Syncope Status: Acute Assessment and plan: likely related to cardiac causes. exercise oximetry should be done prior to discharge to rule out exertional hypoxemia and to titrate her O2 accordingly Current Visit: Yes - Time Spent With Patient Total time spent is greater than 50% in coordination of care (as documented) at patient's floor/unit and/or counseling patient: 25 - 35 minutes
[2017-08-16] MEDS: APIXABAN 2.5 MG PO SCH ×2 (13:43→20:42)
[2017-08-16] MEDS: METOPROLOL TARTRATE 50 MG PO SCH ×2 (13:44→20:42)
[2017-08-16] MEDS ORDERED: AMIODARONE 900 MG in NS 500ml 500 ML IV SCH (15:00)
[2017-08-16] MEDS ORDERED: NITROGLYCERIN 0.4 MG SUBLINGUAL TABLET SL PRN (15:58)
[2017-08-17] MEDS: PANTOPRAZOLE 20 MG TABLET PO SCH (06:35)
[2017-08-17] MEDS: METOPROLOL TARTRATE 50 MG PO SCH ×2 (09:12→20:11)
[2017-08-17] MEDS: APIXABAN 2.5 MG PO SCH ×2 (09:13→20:10)
[2017-08-17] MEDS: LIDOCAINE 1% INJ 10 MG, POTASSIUM CHLORIDE INJ 10 MEQ in NS 100 ML IV SCH ×4 (09:33→13:11)
--- NOTE | 2017-08-17 09:47 | Cardiology Progress Note ---
<Henny Rousseau M - Last Filed: 08/18/17 13:01> Subjective Principal diagnosis: AFib RVR Interval history: Mirlande is seen in follow up for A Fib with RVR. Discussed option of ablation which patient states she is not going to have so discussed that the POC is now rate control instead of rhythm control. She denies chest pressure or pain, palpitations or dyspnea. Exam Vital signs: Temperature 98.4 F 08/17/17 04:39 Pulse Rate 80 08/17/17 04:39 Respiratory Rate 16 08/17/17 04:39 Blood Pressure 150/83 H 08/17/17 04:39 Pulse Oximetry 95 08/17/17 04:39 Inpatient Medications: Generic Name Dose Route Start Last Admin Trade Name Freq PRN Reason Stop Dose Admin Acetaminophen 1,000 mg 08/15/17 15:09 Tylenol PO BID PRN Pain Apixaban 2.5 mg 08/15/17 21:00 08/17/17 09:13 Eliquis PO 2.5 mg BID [facility] Administration Amiodarone HCl 900 mg/ Sodium 500 mls @ 16.66 mls/hr 08/16/17 15:00 08/16/17 20:25 Chloride IV 0.5 mg/min .Q24H [facility] 16.66 mls/hr 0.5 MG/MIN Administration Lidocaine HCl 10 mg/ Potassium 100 mls @ 100 mls/hr 08/17/17 08:15 08/17/17 09:33 Chloride 10 meq/ Sodium IV 08/17/17 12:28 100 mls/hr Chloride .Q1H [facility] Administration Methotrexate 20 mg 08/21/17 09:00 Methotrexate PO Q7D [facility] Metoprolol Tartrate 50 mg 08/15/17 21:00 08/17/17 09:12 Lopressor PO 50 mg BID [facility]AL Administration Nitroglycerin 0.4 mg 08/16/17 15:58 Nitrostat SL Q5MIN3 PRN Angina Ondansetron HCl 4 mg 08/15/17 15:45 Zofran IVP Q6H PRN Nausea &/or vomiting Pantoprazole Sodium 20 mg 08/16/17 06:30 08/17/17 06:35 Protonix PO 20 mg ACB [facility] Administration Potassium Chloride 10 meq 08/16/17 16:00 08/16/17 16:17 K-Dur 10 Meq Tablet PO 10 meq DAILY [facility] Administration Potassium Chloride 40 meq 08/17/17 09:00 08/17/17 09:12 K-Dur 20 Meq Tablet PO 40 meq WB [facility] Administration Sodium Chloride 10 - 80 ml 08/15/17 11:04 Iv Flush IVF PRN PRN Flushing Discontinued Medications Generic Name Dose Route Start Last Admin Trade Name Freq PRN Reason Stop Dose Admin Diltiazem HCl 180 mg 08/16/17 09:00 Cardizem Cd 180 Mg PO DAILY [facility]AL Diphtheria/Tetanus/Acell Pertussis 0.5 ml 08/15/17 18:30 Adacel IM 08/15/17 18:31 .ONCE ONE Diphtheria/Tetanus/Acell Pertussis 0.5 ml 08/16/17 09:00 Adacel IM 08/16/17 09:01 .ONCE ONE Sodium Chloride 500 mls @ 500 mls/hr 08/15/17 11:04 08/15/17 11:44 Normal Saline IV 08/15/17 12:03 Infused .Q1H ONE Infusion Lidocaine HCl 10 mg/ Potassium 100 mls @ 100 mls/hr 08/15/17 15:15 08/15/17 21:00 Chloride 10 meq/ Sodium IV 08/15/17 19:28 Infused Chloride .Q1H [facility] Infusion Sodium Chloride 500 mls @ 100 mls/hr 08/15/17 15:44 08/16/17 00:10 Normal Saline IV 08/15/17 20:43 Infused .Q5H ONE Infusion Magnesium Sulfate/Dextrose 1 gm in 100 mls @ 100 mls/hr 08/16/17 08:15 12:55 Mag Sulf 1gm Premix IV 08/16/17 10:14 Infused Q1H [facility] Infusion Amiodarone HCl 450 mg/ Sodium 250 mls @ 33.33 mls/hr 08/16/17 09:00 08/16/17 20:05 Chloride IV 08/16/17 15:00 Infused .Q7H31M [facility] Infusion 1 MG/MIN Amiodarone HCl 150 mg/ Sodium 103 mls @ 618 mls/hr 08/16/17 08:52 08/16/17 12 :13 Chloride IV 08/16/17 09:01 Infused O ONE Infusion Sodium Chloride 500 mls @ 500 mls/hr 08/16/17 10:45 08/16/17 11:45 Normal Saline IV 08/16/17 11:44 Infused .Q1H [facility] Infusion Potassium Chloride 40 meq 08/15/17 11:38 08/15/17 11:45 K-Dur 20 Meq Tablet PO 08/15/17 11:39 40 meq O ONE Administration - Constitutional no acute distress, well nourished, cooperative - Routine HEENT Exam Head: Present: normocephalic ENT: Present: mucous membranes moist - Routine Neck Exam Absent: JVD, carotid bruit - Routine Chest/Breast/Axilla Exam Chest wall: Absent: tenderness - Routine Respiratory Exam Present: CTA bilaterally, diminished air movement (anteriorly) - Routine Cardiovascular Exam Present: no murmur, irregular rhythm - Routine Abdominal Exam Present: soft, normoactive bowel sounds - Routine Extremities Exam Present: edema, pulses intact - Routine Skin Exam Present: intact, dry, warm - Routine Neurological Exam Present: alert - Routine Psychiatric Exam Present: normal affect Results 08/17/17 04:51 08/17/17 04:51 CBC 08/17/17 Range/Units 04:51 WBC 3.7 L (4.5-11.0) T/MM3 RBC 3.46 L (4.00-5.20) M/MM3 Hgb 10.8 L D (12-16) GM/DL Hct 33.3 L (36-46) % Plt Count 186 (130-400) T/MM3 Comprehensive Metabolic Panel 08/17/17 Range/Units 04:51 Sodium 135 (134-144) MEQ/L Potassium 2.9 L* (3.6-5) MEQ/L Chloride 98 (98-107) MEQ/L Carbon Dioxide 27 (22-30) MEQ/L BUN 21.0 H (7-17) MG/DL Creatinine 0.7 (0.7-1.2) mg/dL Glucose 100 (65-110) MG/DL Calcium 7.7 L D (8.4-10.2) MG/DL Intake and Output 08/16/17 08/17/17 08/17/17 22:59 06:59 14:59 Intake Total 650 / 650 120 / 120 Output Total 125 / 125 100 / 100 400 / 400 Balance 525 / 525 -400 / -400 Intake: IV 250 / 250 Amiodarone 450 mg In NS 250ml 250 / 250 250 ml @ 1 MG/MIN 33.33 mls/hr IV .Q7H31M [facility] Rx#:[id number] Oral 400 / 400 120 / 120 Output: Urine 125 / 125 100 / 100 400 / 400 Other: Urine Appearance Clear Clear Clear Urine Color Yellow Pale Yellow Yellow Urine Odor Normal Normal Strong Weight 118 lb 9.739 oz Patient Weight 08/18/17 06:59 Weight 118 lb 9.739 oz - Imaging and Cardiology Imaging & Cardiology Narrative: DATE OF PROCEDURE August 16, [address] Nelly Goldman The patient is an 86-year lady with history of atrial fibrillation on chronic anticoagulation and poorly controlled rate and was referred for DC cardioversion. Informed consent was obtained after explaining the procedure and the potential risks to the patient who agreed to proceed with the procedure. PROCEDURE 1. DC cardioversion. Conscious sedation was performed using Versed and fentanyl. Anterior-posterior Zoll pads were applied. 360 joules of energy was delivered in a synchronized manner and patient converted from atrial fibrillation to sinus/ectopic atrial rhythm. She tolerated the procedure well with no complications. IMPRESSION 1. Successful DC cardioversion of atrial fibrillation to sinus rhythm. PLAN Will keep her on chronic anticoagulation and start her on antiarrhythmics to maintain sinus. 08/17/17 09:45 Assessment and Plan - Assessment and Plan (1) Atrial fibrillation with RVR Status: Acute (2) Hypokalemia Status: Acute (3) Rheumatoid arthritis Status: Chronic (4) Syncope Status: Acute - Assessment and Plan 08/15/17 Syncope: Hold diuretics -2D echo: Normal LV systolic function with ejection fraction of 62%, Biatrial dilation, Concentric left ventricular hypertrophy, Mitral annulus calcification with mild mitral regurgitation, Aortic sclerosis, Moderate tricuspid regurgitation with normal estimated pulmonary artery systolic pressure of 30, Mild pulmonary insufficiency. A Fib with RVR: NPO at midnight for DCCV tomorrow am - Continue Eliquis for anticoagulation - 2D echo - TSH and Mag - EKG if converts Hypokalemia: Replace potassium - Monitor electrolytes RA Thank you for allowing us to participate in the care of this patient. 08/16/17 Successful DCCV with 360 J to NS - Later junctional and about 2 hrs post returned to A Fib 08/17/17 Remains in atrial fibrillation, rate controlled - Stop Amiodarone drip - Does not want ablation - Continue Metoprolol and Eliquis K+ 2.9 - Replace potassium Hospital Course Summary Disclaimer: The visit summary below is not to be considered part of the above Progress Note. Hospital Course: 08/15/17 Admit, observation status. Trend troponin x3; monitor rhythm on telemetry. Continue metoprolol and diltiazem for rate control. Check TSH. Consult Dr. Davis - discussed with Henny Rousseau APRN. Also inquired about medications, as she is on both a thiazide and loop diuretic. Question whether or not elevated CO2 is r/t diuretic use (perhaps over-diuresed? ). Will give another 500 mL of NS. Monitor respiratory status closely - she had bibasilar crackles on exam but review of CXR showed bronchiectasis to lung bases ; possible bronchitis; possible infiltrate to right lung base (though other than cough since March, pt does not have clinical symptoms of pneumonia). Zofran PRN nausea. Hypokalemia - IV bolus ordered. Check magnesium level. Hold Lasix for now. Recheck BMP at next troponin draw. Hypercalcemia - recheck tomorrow am following IVF; will hold chlorthalidone as well which may also cause hypercalcemia. Continue Eliquis for A-fib. Start Protonix d/t hx of GERD. Advanced directives: Son Saqib is DPOA. She has a living will. Requests DNR status and would like to have DNR order from Dr. José upon discharge back to [facility]. 08/16/17 Underwent successful cardioversion this am. Dr. Davis plans to start her on Amiodarone. K improved to 3.5 and will continue replacement orally. Mg 1.5 - will order IV replacement. CO2 improved to 30 (previously 35). Calcium is back to normal level 8.8. TSH was low at 0.32, will check free T4/T3. She is not on any thyroid replacement. Continue to hold diuretics for now. Dr. Longoria consulted for possible pulmonary fibrosis 2/2 methotrexate use. <Isiah Davis - Last Filed: 08/19/17 14:24> Exam Vital signs: Temperature 96.4 F L 08/19/17 07:34 Pulse Rate 82 08/19/17 08:00 Respiratory Rate 16 08/19/17 07:34 Blood Pressure 140/78 H 08/19/17 07:37 Pulse Oximetry 99 08/19/17 07:34 Inpatient Medications: Discontinued Medications Generic Name Dose Route Start Last Admin Trade Name Jorge PRN Reason Stop Dose Admin Acetaminophen 1,000 mg 08/15/17 15:09 08/19/17 02:53 Tylenol PO 1,000 mg BID PRN Administration Pain Apixaban 2.5 mg 08/15/17 21:00 08/19/17 08:28 Eliquis PO 2.5 mg BID [facility]AL Administration Calcium/Vitamin D 1 tab 08/18/17 21:00 08/19/17 08:27 Caltrate + D PO 1 tab BID [facility]AL Administration Diltiazem HCl 180 mg 08/16/17 09:00 Cardizem Cd 180 Mg PO DAILY [facility] Diphtheria/Tetanus/Acell Pertussis 0.5 ml 08/15/17 18:30 08/18/17 10:03 Adacel IM 08/15/17 18:31 Not Given .ONCE ONE Diphtheria/Tetanus/Acell Pertussis 0.5 ml 08/16/17 09:00 08/18/17 10:02 Adacel IM 08/16/17 09:01 Not Given .ONCE ONE Sodium Chloride 500 mls @ 500 mls/hr 08/15/17 11:04 08/15/17 11:44 Normal Saline IV 08/15/17 12:03 Infused .Q1H ONE Infusion Lidocaine HCl 10 mg/ Potassium 100 mls @ 100 mls/hr 08/15/17 15:15 08/15/17 21:00 Chloride 10 meq/ Sodium IV 08/15/17 19:28 Infused Chloride .Q1H [facility]AL Infusion Sodium Chloride 500 mls @ 100 mls/hr 08/15/17 15:44 08/16/17 00:10 Normal Saline IV 08/15/17 20:43 Infused .Q5H ONE Infusion Magnesium Sulfate/Dextrose 1 gm in 100 mls @ 100 mls/hr 08/16/17 08:15 12:55 Mag Sulf 1gm Premix IV 08/16/17 10:14 Infused Q1H [facility] Infusion Amiodarone HCl 900 mg/ Sodium 500 mls @ 16.66 mls/hr 08/16/17 15:00 08/17/17 10:44 Chloride IV Infused .Q24H [facility] Infusion 0.5 MG/MIN Amiodarone HCl 450 mg/ Sodium 250 mls @ 33.33 mls/hr 08/16/17 09:00 08/16/17 20:05 Chloride IV 08/16/17 15:00 Infused .Q7H31M [facility] Infusion 1 MG/MIN Amiodarone HCl 150 mg/ Sodium 103 mls @ 618 mls/hr 08/16/17 08:52 08/16/17 12 :13 Chloride IV 08/16/17 09:01 Infused O ONE Infusion Sodium Chloride 500 mls @ 500 mls/hr 08/16/17 10:45 08/16/17 11:45 Normal Saline IV 08/16/17 11:44 Infused .Q1H [facility]AL Infusion Lidocaine HCl 10 mg/ Potassium 100 mls @ 100 mls/hr 08/17/17 08:15 08/17/17 14:20 Chloride 10 meq/ Sodium IV 08/17/17 12:28 Infused Chloride .Q1H [facility] Infusion Sodium Chloride 500 mls @ 999.9 mls/hr 08/18/17 15:15 08/18/17 16:18 Normal Saline IV 08/18/17 15:44 Infused .Q30M [facility] Infusion Methotrexate 20 mg 08/21/17 09:00 Methotrexate PO Q7D CR[facility]STAL Metoprolol Tartrate 50 mg 08/15/17 21:00 08/19/17 08:27 Lopressor PO 50 mg BID CRYSTAL Administration Midodrine 5 mg 08/18/17 15:00 08/19/17 11:14 Proamatine PO 5 mg 0700,1100,1500 CRYSTAL Administration Nitroglycerin 0.4 mg 08/16/17 15:58 Nitrostat SL Q5MIN3 PRN Angina Ondansetron HCl 4 mg 08/15/17 15:45 Zofran IVP Q6H PRN Nausea &/or vomiting Pantoprazole Sodium 20 mg 08/16/17 06:30 08/19/17 06:19 Protonix PO 20 mg ACB CRYSTAL Administration Potassium Chloride 40 meq 08/15/17 11:38 08/15/17 11:45 K-Dur 20 Meq Tablet PO 08/15/17 11:39 40 meq O ONE Administration Potassium Chloride 10 meq 08/16/17 16:00 08/18/17 10:17 K-Dur 10 Meq Tablet PO Not Given DAILY CRYSTAL Potassium Chloride 40 meq 08/17/17 09:00 08/17/17 09:12 K-Dur 20 Meq Tablet PO 40 meq WB CR[facility]STAL Administration Potassium Chloride 40 meq 08/17/17 17:30 08/19/17 08:27 K-Dur 20 Meq Tablet PO 40 meq BIDWM CRYSTAL Administration Sodium Chloride 10 - 80 ml 08/15/17 11:04 Iv Flush IVF PRN PRN Flushing Results 08/18/17 04:32 08/19/17 04:25 Comprehensive Metabolic Panel 08/19/17 Range/Units 04:25 Sodium 138 (134-144) MEQ/L Potassium 4.4 (3.6-5) MEQ/L Chloride 103 (98-107) MEQ/L Carbon Dioxide 26 (22-30) MEQ/L BUN 17.0 (7-17) MG/DL Creatinine 0.7 (0.7-1.2) mg/dL Glucose 90 (65-110) MG/DL Calcium 7.8 L (8.4-10.2) MG/DL Intake and Output 08/18/17 08/19/17 08/19/17 22:59 06:59 14:59 Intake Total 730 / 730 780 / 780 Output Total 300 / 300 550 / 550 800 / 800 Balance 430 / 430 -550 / -550 -20 / -20 Intake: IV 500 / 500 NS 500ml 500 ml @ 999.9 mls/hr 500 / 500 IV .Q30M [facility] Rx#:[id number] Oral 230 / 230 780 / 780 Output: Urine 300 / 300 550 / 550 800 / 800 Other: Urine Appearance Clear Clear Clear Urine Color Yellow Yellow Yellow Urine Odor Normal Normal Stool Color Brown Brown Stool Consistency Soft Soft Formed Formed Size of Bowel Movement Small Small # Voids 1 # Bowel Movements 1 1 Weight 53.9 kg Patient Weight 08/20/17 06:59 Weight 53.9 kg Assessment and Plan - Assessment and Plan (1) Atrial fibrillation with RVR Status: Acute (2) Rheumatoid arthritis Status: Chronic (3) Hypokalemia Status: Acute (4) Syncope Status: Acute - Attestation Attestation Narrative: 08/19/17 14:24 Recommendation After examining the patient I agree with the above assessment. I am involved in the formulation of the patient's plan of care. Hospital Course Summary Disclaimer: The visit summary below is not to be considered part of the above Progress Note.
--- NOTE | 2017-08-17 10:18 | Pulmonology Progress Note ---
Subjective Principal diagnosis: AFib RVR Interval history: Pt. currently eating breakfast in bed. State she has mainly a non-productive cough that she's had for the last 3 weeks, but notes there is some amounts of yellow sputum at times. Denies SOB or dyspnea. at bedside. Exam Vital signs: Temperature 98.4 F 08/17/17 04:39 Pulse Rate 80 08/17/17 04:39 Respiratory Rate 16 08/17/17 04:39 Blood Pressure 150/83 H 08/17/17 04:39 Pulse Oximetry 95 08/17/17 04:39 Inpatient Medications: Generic Name Dose Route Start Last Admin Trade Name Freq PRN Reason Stop Dose Admin Acetaminophen 1,000 mg 08/15/17 15:09 Tylenol PO BID PRN Pain Apixaban 2.5 mg 08/15/17 21:00 08/17/17 09:13 Eliquis PO 2.5 mg BID CRYSTAL Administration Lidocaine HCl 10 mg/ Potassium 100 mls @ 100 mls/hr 08/17/17 08:15 08/17/17 09:33 Chloride 10 meq/ Sodium IV 08/17/17 12:28 100 mls/hr Chloride .Q1H CRYSTAL Administration Methotrexate 20 mg 08/21/17 09:00 Methotrexate PO Q7D CRYSTAL Metoprolol Tartrate 50 mg 08/15/17 21:00 08/17/17 09:12 Lopressor PO 50 mg BID CRYSTAL Administration Nitroglycerin 0.4 mg 08/16/17 15:58 Nitrostat SL Q5MIN3 PRN Angina Ondansetron HCl 4 mg 08/15/17 15:45 Zofran IVP Q6H PRN Nausea &/or vomiting Pantoprazole Sodium 20 mg 08/16/17 06:30 08/17/17 06:35 Protonix PO 20 mg ACB CRYSTAL Administration Potassium Chloride 10 meq 08/16/17 16:00 08/16/17 16:17 K-Dur 10 Meq Tablet PO 10 meq DAILY CRYSTAL Administration Potassium Chloride 40 meq 08/17/17 09:00 08/17/17 09:12 K-Dur 20 Meq Tablet PO 40 meq WB CRYSTAL Administration Sodium Chloride 10 - 80 ml 08/15/17 11:04 Iv Flush IVF PRN PRN Flushing Discontinued Medications Generic Name Dose Route Start Last Admin Trade Name Freq PRN Reason Stop Dose Admin Diltiazem HCl 180 mg 08/16/17 09:00 Cardizem Cd 180 Mg PO DAILY CRYSTAL Diphtheria/Tetanus/Acell Pertussis 0.5 ml 08/15/17 18:30 Adacel IM 08/15/17 18:31 .ONCE ONE Diphtheria/Tetanus/Acell Pertussis 0.5 ml 08/16/17 09:00 Adacel IM 08/16/17 09:01 .ONCE ONE Sodium Chloride 500 mls @ 500 mls/hr 08/15/17 11:04 08/15/17 11:44 Normal Saline IV 08/15/17 12:03 Infused .Q1H ONE Infusion Lidocaine HCl 10 mg/ Potassium 100 mls @ 100 mls/hr 08/15/17 15:15 08/15/17 21:00 Chloride 10 meq/ Sodium IV 08/15/17 19:28 Infused Chloride .Q1H CRYSTAL Infusion Sodium Chloride 500 mls @ 100 mls/hr 08/15/17 15:44 08/16/17 00:10 Normal Saline IV 08/15/17 20:43 Infused .Q5H ONE Infusion Magnesium Sulfate/Dextrose 1 gm in 100 mls @ 100 mls/hr 08/16/17 08:15 12:55 Mag Sulf 1gm Premix IV 08/16/17 10:14 Infused Q1H CRYSTAL Infusion Amiodarone HCl 900 mg/ Sodium 500 mls @ 16.66 mls/hr 08/16/17 15:00 08/16/17 20:25 Chloride IV 0.5 mg/min .Q24H CRYSTAL 16.66 mls/hr 0.5 MG/MIN Administration Amiodarone HCl 450 mg/ Sodium 250 mls @ 33.33 mls/hr 08/16/17 09:00 08/16/17 20:05 Chloride IV 08/16/17 15:00 Infused .Q7H31M CRYSTAL Infusion 1 MG/MIN Amiodarone HCl 150 mg/ Sodium 103 mls @ 618 mls/hr 08/16/17 08:52 08/16/17 12 :13 Chloride IV 08/16/17 09:01 Infused O ONE Infusion Sodium Chloride 500 mls @ 500 mls/hr 08/16/17 10:45 08/16/17 11:45 Normal Saline IV 08/16/17 11:44 Infused .Q1H CRYSTAL Infusion Potassium Chloride 40 meq 08/15/17 11:38 08/15/17 11:45 K-Dur 20 Meq Tablet PO 08/15/17 11:39 40 meq O ONE Administration - Constitutional no acute distress, well nourished, well developed - Routine HEENT Exam Head: Present: normocephalic, atraumatic Eye: Present: EOMI, PERRL ENT: Present: mucous membranes moist - Routine Neck Exam Present: supple, full ROM. Absent: JVD, carotid bruit - Routine Respiratory Exam Present: crackles. Absent: patient mechanically ventilated Comments: Crackles right base, otherwise clear - Routine Cardiovascular Exam Present: RRR, S1, S2 - Routine Abdominal Exam Present: soft, normoactive bowel sounds, non distended, non tender - Routine Extremities Exam Present: no edema, non tender, pulses intact, normal capillary refill, joint swelling - Routine Back/Spine/Pelvis Exam Back/Spine: Present: full ROM - Routine Skin Exam Present: intact, dry, warm - Routine Neurological Exam Present: alert, oriented X3, normal speech - Routine Psychiatric Exam Present: normal affect, normal thought process, good insight, good judgment Results - Laboratory Findings Laboratory: Laboratory Results - last 48 hr 08/17/17 08/17/17 04:51 04:51 WBC 3.7 L RBC 3.46 L Hgb 10.8 L D Hct 33.3 L MCV 96.2 MCH 31.2 MCHC 32.4 RDW Std Deviation 52.4 H Plt Count 186 MPV 10.1 Turbidity < 20 Sodium 135 Potassium 2.9 L* Chloride 98 Carbon Dioxide 27 Anion Gap 10 BUN 21.0 H Creatinine 0.7 GFR Calculation 80 BUN/Creatinine Ratio 30 H Glucose 100 Calculated Osmolality 263 Calcium 7.7 L D Magnesium 2.0 D Icterus Index < 2 Specimen Hemolysis < 15 - Diagnostic Findings CT scan - chest: image reviewed (Multiple bilateral small nodules with right lower lobe interstitial infiltrate) Assessment and Plan - Assessment and Plan Abnormal CT with bilateral small nodules A-fib with RVR - s/p cardioversion RA Syncope Hypokalemia Pt. s/p cardioversion - went back into SR, currently on Amio gtt. KCL 2.9, replacing per primary. High res CT with no acute concern of MTX toxicity. Bilateral small nodules noted, likely require follow-up CT. Need PFT, if obstructive likely cause of cough secondary to bronchiectasis. Await PFT results. - Time Spent With Patient Total time spent is greater than 50% in coordination of care (as documented) at patient's floor/unit and/or counseling patient: less than 15 minutes
--- NOTE | 2017-08-17 11:30 | Progress Note ---
- Date 08/17/17 Subjective: Mirlande was resting in bed, and her is at bedside. He was very conversational and unintentionally, but kindly, dominated the conversation. She has not had any syncopal events since arriving to the hospital. She went back into A. fib after cardioversion yesterday. She was only in sinus for a couple of hours. She denies any shortness of breath. She continues to have a nonproductive cough. She denies any nausea or vomiting. Her has been concerned about having recurrent syncope while being on anticoagulation. Objective Vital signs: Temperature 98.4 F 08/17/17 04:39 Pulse Rate 88 08/17/17 08:00 Respiratory Rate 16 08/17/17 04:39 Blood Pressure 150/83 H 08/17/17 04:39 Pulse Oximetry 95 08/17/17 04:39 Height/Weight/BMI: Weight 53.8 kg - Constitutional Present: no acute distress, well nourished, well developed - Routine HEENT Exam Head: Present: normocephalic Eye: Present: PERRL. Absent: conjunctival icterus, scleral injection - Routine Respiratory Exam Present: crackles (faint bibasilar crackles, more prominent on the right) - Routine Cardiovascular Exam Present: irregularly irregular - Routine Abdominal Exam Present: soft, normoactive bowel sounds, non distended, non tender - Routine Extremities Exam Present: no edema, pulses intact, normal capillary refill - Routine Musculoskeletal Exam Musculoskeletal: Present: contractures (rheumatoid deformities to hands) - Routine Skin Exam Present: intact, dry, warm - Routine Neurological Exam Present: alert, oriented X3, normal speech - Routine Psychiatric Exam Present: normal affect, normal thought process, cooperative Results - Labs CBC & Chem 7: 08/17/17 04:51 08/17/17 04:51 Assessment and Plan (1) Syncope Current visit: Yes Status: Acute Assessment and Plan: IMPRESSION Syncope x3 Severe hypokalemia [2.6], POA Hypercalcemia [10.5], POA, resolved with IVF Elevated CO2 [35], POA Nausea S/P DCCV on 08/16/17 with brief conversion to sinus with PACs/PVCs, currently back in A. fib Scattered small pulmonary nodules CHRONIC AND ASSOCIATED CONDITIONS Chronic A-fib, on Eliquis Rheumatoid arthritis, on Methotrexate GERD Depression PLAN Patient is back in A. fib, so the goals are rate control versus rhythm control. Cardiology offered ablation, but the patient is not interested. Continue metoprolol and Eliquis. Diuretics have not been resumed. Potassium decreased to 2.9 after being corrected up to 3.5. Will replace IV, then will begin her on higher oral doses of K-Dur. Magnesium level is stable at 2.0. Free T3 and free T4 pending. Hemoglobin decreased to 10.[address] Longoria has evaluated the patient in and will be getting PFTs. He did not find any evidence of drug-induced pulmonary toxicity. Her chest CT showed scattered small pulmonary nodules that will require follow- up. DVT Prophylaxis: Eliquis GI Prophylaxis: Protonix Resuscitation Status: Do Not Resuscitate - Physician Narrative Narrative: Date: 08/17/17 Time: 1126 I have independently evaluated and examined this patient. I reviewed the chart, the patient's history, and the SHEEP AND WHEAT FARMER/PA's documented findings as above. We discussed and formulated the assessment and plan as above with additions as below. The patient was seen by me at 1210. She is doing well except she has very poor by mouth intake and reports she has a poor appetite. He is anticipating eating her leftover yogurt for breakfast for her lunch. She was encouraged to try to increase her protein intake. She is back in A. fib, is receiving IV potassium supplements. Hospital Course Summary Disclaimer: The visit summary below is not to be considered part of the above Progress Note. Hospital Course: 08/15/17 Admit, observation status. Trend troponin x3; monitor rhythm on telemetry. Continue metoprolol and diltiazem for rate control. Check TSH. Consult Dr. Davis - discussed with Henny Rousseau APRN. Also inquired about medications, as she is on both a thiazide and loop diuretic. Question whether or not elevated CO2 is r/t diuretic use (perhaps over-diuresed? ). Will give another 500 mL of NS. Monitor respiratory status closely - she had bibasilar crackles on exam but review of CXR showed bronchiectasis to lung bases ; possible bronchitis; possible infiltrate to right lung base (though other than cough since March, pt does not have clinical symptoms of pneumonia). Zofran PRN nausea. Hypokalemia - IV bolus ordered. Check magnesium level. Hold Lasix for now. Recheck BMP at next troponin draw. Hypercalcemia - recheck tomorrow am following IVF; will hold chlorthalidone as well which may also cause hypercalcemia. Continue Eliquis for A-fib. Start Protonix d/t hx of GERD. Advanced directives: Son Saqib is DPOA. She has a living will. Requests DNR status and would like to have DNR order from Dr. José upon discharge back to [facility]. 08/16/17 Underwent successful cardioversion this am. Dr. Davis plans to start her on Amiodarone. K improved to 3.5 and will continue replacement orally. Mg 1.5 - will order IV replacement. CO2 improved to 30 (previously 35). Calcium is back to normal level 8.8. TSH was low at 0.32, will check free T4/T3. She is not on any thyroid replacement. Continue to hold diuretics for now. Dr. Longoria consulted for possible pulmonary fibrosis 2/2 methotrexate use. 08/17/17 Patient is back in A. fib, so the goals are rate control versus rhythm control. Cardiology offered ablation, but the patient is not interested. Continue metoprolol and Eliquis. Diuretics have not been resumed. Potassium decreased to 2.9 after being corrected up to 3.5. Will replace IV, then will begin her on higher oral doses of K-Dur. Magnesium level is stable at 2.0. Free T3 and free T4 pending. Hemoglobin decreased to 10.[address] Longoria has evaluated the patient in and will be getting PFTs. He did not find any evidence of drug-induced pulmonary toxicity. Her chest CT showed scattered small pulmonary nodules that will require follow- up.
--- NOTE | 2017-08-17 15:01 | Ultrasound Report ---
Indication: syncope PROCEDURE: US carotid doppler BI: TECHNIQUE: Grayscale, color and duplex Doppler imaging was performed of the carotid systems bilaterally. Velocities in cm/sec - validated velocity measurements with angiographic measurements, velocity criteria are extrapolated from diameter data as defined by the Society of Radiologists in Ultrasound Consensus Conference Radiology 2003; 229;340-346. RIGHT: PSV ICA 74.2 EDV ICA 20.4 PSV CCA 52.4 EDV CCA 14.2 PSV ECA 86.6 ICA Diameter reduction 10-30% LEFT: PSV ICA 74.2 EDV ICA 26.7 PSV CCA 80.4 EDV CCA 20.2 PSV ECA 125 ICA Diameter reduction <20% (0.8-1.0)% The right vertebral artery is patent with cephalic flow. The left vertebral artery is patent with cephalic flow. Mild atherosclerotic plaque for age. IMPRESSION: No hemodynamically significant carotid stenosis. .
--- NOTE | 2017-08-17 16:03 | CT Scan Report ---
Indication: syncope PROCEDURE: CT head/brain wo con: Encounter: Initial Comparison: None Technique: Axial CT images through the head were performed without contrast. Iterative Reconstruction dose reducing technique was utilized. FINDINGS: Moderate generalized atrophy. The ventricles are of normal size, shape, and contour for the patient's age. There are extensive areas of low attenuation in the white matter which most likely represent changes from chronic microvascular ischemia. The brainstem, cerebellum, and cerebral hemispheres otherwise have a normal morphology and CT attenuation. There is no evidence of midline displacement. No hemorrhage, signs of acute territorial stroke, mass effect, mass lesions, or edema is evident. The visualized portions of the skull base, midface, and calvarium demonstrate no abnormality. Mild scattered sinus disease. The tympanic and mastoid cavities appear normal. IMPRESSION: No acute intracranial abnormality or hemorrhage. .
[2017-08-18] MEDS: PANTOPRAZOLE 20 MG TABLET PO SCH (06:14)
[2017-08-18 08:14] VITALS: RESP 16
[2017-08-18] MEDS: APIXABAN 2.5 MG PO SCH ×2 (09:35→20:29)
[2017-08-18] MEDS: METOPROLOL TARTRATE 50 MG PO SCH ×2 (09:35→20:29)
--- NOTE | 2017-08-18 12:43 | Progress Note ---
- Date 08/18/17 Subjective: Mirlande denies any new concerns. She has not had any chest pain or palpitations. No dizziness or syncope. Her activity level is less than at home - ie using bedside commode rather than walking to bathroom. She has chronic back pain. Her notes that she's had dyspnea on exertion for quite a while and tends to rest/sleep most of the day. Objective Vital signs: Temperature 97.7 F 08/18/17 08:00 Pulse Rate 90 08/18/17 11:05 Respiratory Rate 16 08/18/17 08:00 Blood Pressure 126/66 08/18/17 11:05 Pulse Oximetry 96 08/18/17 08:00 Height/Weight/BMI: Weight 52.9 kg - Constitutional Present: no acute distress, well nourished, well developed, thin - Routine HEENT Exam Head: Present: normocephalic Eye: Present: PERRL. Absent: conjunctival icterus, scleral injection ENT: Present: mucous membranes moist, oropharynx clear - Routine Respiratory Exam Present: decreased breath sounds - Routine Cardiovascular Exam Present: irregularly irregular - Routine Abdominal Exam Present: soft, non tender - Routine Extremities Exam Present: no edema - Routine Back/Spine/Pelvis Exam Back/Spine: Present: kyphosis (prominent thoracic spine) - Routine Musculoskeletal Exam Musculoskeletal: Present: contractures (associated with RA) - Routine Skin Exam Present: intact, dry, warm, wounds (to right wrist improving) - Routine Neurological Exam Present: alert, oriented X3, normal speech - Routine Psychiatric Exam Present: normal affect, normal thought process, cooperative Results - Labs CBC & Chem 7: 08/18/17 04:32 08/18/17 04:32 Assessment and Plan (1) Syncope Current visit: Yes Status: Acute Assessment and Plan: IMPRESSION Syncope x3 Severe hypokalemia [2.6], POA Hypercalcemia [10.5], POA, resolved with IVF Elevated CO2 [35], POA Nausea S/P DCCV on 08/16/17 with brief conversion to sinus with PACs/PVCs, currently back in A. fib Scattered small pulmonary nodules Leukopenia, suspect secondary to methotrexate use CHRONIC AND ASSOCIATED CONDITIONS Chronic A-fib, on Eliquis Rheumatoid arthritis, on Methotrexate Osteoporosis Anemia, chronic (usually hgb in the 10s) GERD Depression PLAN Head CT and carotid dopplers were neg. Dr. Cruz was consulted, concerned that syncopal events are caused by low BP and recommends starting Midodrine. Also recommends check vitamin B12 and folic acid. She is having some variable BP readings and is inconsistently orthostatic but this seems to be improving. Discussed with Henny Rousseau APRN - she will talk with Dr. Davis regarding diuretic therapy. She did not have objections to Midodrine. Hypocalcemia - start Ca + Vit D. K stable at 3.8, though she is on much higher dose of KDur than she was at home. Consult PT/OT. Mirlande and her reside in [place] at [facility]. Will discuss in further detail with attending. Appreciate consult's expertise. DVT Prophylaxis: Eliquis GI Prophylaxis: Protonix Resuscitation Status: Do Not Resuscitate - Physician Narrative Narrative: Date: 08/18/17 Time: 1239 I have independently evaluated and examined this patient. I reviewed the chart, the patient's history, and the MOTOR VEHICLE LIGHT ASSEMBLER/PA's documented findings as above. We discussed and formulated the assessment and plan as above with additions as below. The patient was seen at 1400, her was not available at that time. The patient relates she did not want to take midodrine at that time. She also reports she started having diarrhea. She's had 2 or 3 stools since this morning. I returned to talk to her and her 40 minutes later. It was discussed that she received cephalexin for prophylaxis because of her hip implants,last Tuesday when she saw the dentist. Reviewed her home medications with her . According to cardiology,she will not be going home on the following meds-diltiazem, furosemide, chlorthalidone, and more than likely she will not need potassium. In addition, the recent guidelines did not support antibiotic prophylaxis with dental procedures for orthopedic issues. This was discussed with patient and her as well. Reiterated Dr. Cruz's findings. He believes that her issue may be orthostatic hypotension and midodrine may be helpful for that. Her blood pressure was rechecked this afternoon. Lying - blood pressure is 126/73 with pulse of 91, sitting- blood pressure 135/73 with a pulse of 89, standing - blood pressure is 112/65 with a pulse of 87. She and her are willing to try the midodrine We'll also give her a bolus of normal saline now. She complains of lower back pain and requested Tylenol as well. Because of her recent antibiotic use, we'll check a stool for C. difficile. Hospital Course Summary Disclaimer: The visit summary below is not to be considered part of the above Progress Note. Hospital Course: 08/15/17 Admit, observation status. Trend troponin x3; monitor rhythm on telemetry. Continue metoprolol and diltiazem for rate control. Check TSH. Consult Dr. Davis - discussed with Henny Rousseau APRN. Also inquired about medications, as she is on both a thiazide and loop diuretic. Question whether or not elevated CO2 is r/t diuretic use (perhaps over-diuresed? ). Will give another 500 mL of NS. Monitor respiratory status closely - she had bibasilar crackles on exam but review of CXR showed bronchiectasis to lung bases ; possible bronchitis; possible infiltrate to right lung base (though other than cough since March, pt does not have clinical symptoms of pneumonia). Zofran PRN nausea. Hypokalemia - IV bolus ordered. Check magnesium level. Hold Lasix for now. Recheck BMP at next troponin draw. Hypercalcemia - recheck tomorrow am following IVF; will hold chlorthalidone as well which may also cause hypercalcemia. Continue Eliquis for A-fib. Start Protonix d/t hx of GERD. Advanced directives: Son Saqib is DPOA. She has a living will. Requests DNR status and would like to have DNR order from Dr. José upon discharge back to [facility]. 08/16/17 Underwent successful cardioversion this am. Dr. Davis plans to start her on Amiodarone. K improved to 3.5 and will continue replacement orally. Mg 1.5 - will order IV replacement. CO2 improved to 30 (previously 35). Calcium is back to normal level 8.8. TSH was low at 0.32, will check free T4/T3. She is not on any thyroid replacement. Continue to hold diuretics for now. Dr. Longoria consulted for possible pulmonary fibrosis 2/2 methotrexate use. 08/17/17 Patient is back in A. fib, so the goals are rate control versus rhythm control. Cardiology offered ablation, but the patient is not interested. Continue metoprolol and Eliquis. Diuretics have not been resumed. Potassium decreased to 2.9 after being corrected up to 3.5. Will replace IV, then will begin her on higher oral doses of K-Dur. Magnesium level is stable at 2.0. Free T3 and free T4 pending. Hemoglobin decreased to 10.[address] Longoria has evaluated the patient in and will be getting PFTs. He did not find any evidence of drug-induced pulmonary toxicity. Her chest CT showed scattered small pulmonary nodules that will require follow- up. 08/18/[address] and carotid dopplers were neg. Dr. Cruz was consulted, concerned that syncopal events are caused by low BP and recommends starting Midodrine. Also recommends check vitamin B12 and folic acid. She is having some variable BP readings and is inconsistently orthostatic but this seems to be improving. Discussed with Henny Rousseau APRN - she will talk with Dr. Davis regarding diuretic therapy. She did not have objections to Midodrine. Hypocalcemia - start Ca + Vit D. K stable at 3.8, though she is on much higher dose of KDur than she was at home. Consult PT/OT. Mirlande and her reside in [place] at [facility]. Addendum entered and electronically signed by Negar Hernandez APRN 08/18/17 13: 31: Discussed diuretic situation with Henny -- at this time she may not require routine diuretics at home.
--- NOTE | 2017-08-18 13:04 | Cardiology Progress Note ---
<Henny Rousseau M - Last Filed: 08/19/17 13:44> Subjective Principal diagnosis: AFib RVR Interval history: Mirlande is seen in follow up for A Fib with RVR. She is sitting up eating her supper. She states she hopes to discharge tomorrow. She denies chest pressure or pain, palpitations or dyspnea. Exam Vital signs: Temperature 97.7 F 08/18/17 08:00 Pulse Rate 90 08/18/17 11:05 Respiratory Rate 16 08/18/17 08:00 Blood Pressure 126/66 08/18/17 11:05 Pulse Oximetry 96 08/18/17 08:00 Inpatient Medications: Generic Name Dose Route Start Last Admin Trade Name Freq PRN Reason Stop Dose Admin Acetaminophen 1,000 mg 08/15/17 15:09 Tylenol PO BID PRN Pain Apixaban 2.5 mg 08/15/17 21:00 08/18/17 09:35 Eliquis PO 2.5 mg BID CRYSTAL Administration Calcium/Vitamin D 1 tab 08/18/17 21:00 Caltrate + D PO BID CRYSTAL Methotrexate 20 mg 08/21/17 09:00 Methotrexate PO Q7D CRYSTAL Metoprolol Tartrate 50 mg 08/15/17 21:00 08/18/17 09:35 Lopressor PO 50 mg BID CRYSTAL Administration Midodrine 5 mg 08/18/17 15:00 Proamatine PO 0700,1100,1500 CRYSTAL Nitroglycerin 0.4 mg 08/16/17 15:58 Nitrostat SL Q5MIN3 PRN Angina Ondansetron HCl 4 mg 08/15/17 15:45 Zofran IVP Q6H PRN Nausea &/or vomiting Pantoprazole Sodium 20 mg 08/16/17 06:30 08/18/17 06:14 Protonix PO 20 mg ACB CRYSTAL Administration Potassium Chloride 10 meq 08/16/17 16:00 08/18/17 10:17 K-Dur 10 Meq Tablet PO Not Given DAILY CRYSTAL Potassium Chloride 40 meq 08/17/17 17:30 08/18/17 09:35 K-Dur 20 Meq Tablet PO 40 meq BIDWM CRYSTAL Administration Sodium Chloride 10 - 80 ml 08/15/17 11:04 Iv Flush IVF PRN PRN Flushing Discontinued Medications Generic Name Dose Route Start Last Admin Trade Name Freq PRN Reason Stop Dose Admin Diltiazem HCl 180 mg 08/16/17 09:00 Cardizem Cd 180 Mg PO DAILY CRYSTAL Diphtheria/Tetanus/Acell Pertussis 0.5 ml 08/15/17 18:30 08/18/17 10:03 Adacel IM 08/15/17 18:31 Not Given .ONCE ONE Diphtheria/Tetanus/Acell Pertussis 0.5 ml 08/16/17 09:00 08/18/17 10:02 Adacel IM 08/16/17 09:01 Not Given .ONCE ONE Sodium Chloride 500 mls @ 500 mls/hr 08/15/17 11:04 08/15/17 11:44 Normal Saline IV 08/15/17 12:03 Infused .Q1H ONE Infusion Lidocaine HCl 10 mg/ Potassium 100 mls @ 100 mls/hr 08/15/17 15:15 08/15/17 21:00 Chloride 10 meq/ Sodium IV 08/15/17 19:28 Infused Chloride .Q1H CRYSTAL Infusion Sodium Chloride 500 mls @ 100 mls/hr 08/15/17 15:44 08/16/17 00:10 Normal Saline IV 08/15/17 20:43 Infused .Q5H ONE Infusion Magnesium Sulfate/Dextrose 1 gm in 100 mls @ 100 mls/hr 08/16/17 08:15 12:55 Mag Sulf 1gm Premix IV 08/16/17 10:14 Infused Q1H CRYSTAL Infusion Amiodarone HCl 900 mg/ Sodium 500 mls @ 16.66 mls/hr 08/16/17 15:00 08/17/17 10:44 Chloride IV Infused .Q24H CRYSTAL Infusion 0.5 MG/MIN Amiodarone HCl 450 mg/ Sodium 250 mls @ 33.33 mls/hr 08/16/17 09:00 08/16/17 20:05 Chloride IV 08/16/17 15:00 Infused .Q7H31M CRYSTAL Infusion 1 MG/MIN Amiodarone HCl 150 mg/ Sodium 103 mls @ 618 mls/hr 08/16/17 08:52 08/16/17 12 :13 Chloride IV 08/16/17 09:01 Infused O ONE Infusion Sodium Chloride 500 mls @ 500 mls/hr 08/16/17 10:45 08/16/17 11:45 Normal Saline IV 08/16/17 11:44 Infused .Q1H CRYTSAL Infusion Lidocaine HCl 10 mg/ Potassium 100 mls @ 100 mls/hr 08/17/17 08:15 08/17/17 14:20 Chloride 10 meq/ Sodium IV 08/17/17 12:28 Infused Chloride .Q1H CRYSTAL Infusion Potassium Chloride 40 meq 08/15/17 11:38 08/15/17 11:45 K-Dur 20 Meq Tablet PO 08/15/17 11:39 40 meq O ONE Administration Potassium Chloride 40 meq 08/17/17 09:00 08/17/17 09:12 K-Dur 20 Meq Tablet PO 40 meq WB CRYSTAL Administration - Constitutional no acute distress, well nourished, cooperative - Routine HEENT Exam Head: Present: normocephalic ENT: Present: mucous membranes moist - Routine Neck Exam Absent: JVD, carotid bruit - Routine Chest/Breast/Axilla Exam Chest wall: Absent: tenderness - Routine Respiratory Exam Present: decreased breath sounds, CTA bilaterally - Routine Cardiovascular Exam Present: no murmur, irregularly irregular - Routine Abdominal Exam Present: soft, normoactive bowel sounds - Routine Extremities Exam Present: no edema - Routine Skin Exam Present: intact, dry, warm - Routine Neurological Exam Present: alert, oriented X3 - Routine Psychiatric Exam Present: normal affect, normal thought process Results 08/18/17 04:32 08/19/17 04:25 CBC 08/18/17 Range/Units 04:32 WBC 3.3 L (4.5-11.0) T/MM3 RBC 3.58 L (4.00-5.20) M/MM3 Hgb 11.3 L (12-16) GM/DL Hct 34.6 L (36-46) % Plt Count 178 (130-400) T/MM3 Neut # (Auto) 2.2 (1.8-7.7) T/MM3 Lymph # (Auto) 0.8 L (1-4.8) T/MM3 [place] # (Auto) 0.2 (0-0.8) T/MM3 Eos # (Auto) 0.1 (0-0.5) T/MM3 Baso # (Auto) 0.0 (0-0.2) T/MM3 Comprehensive Metabolic Panel 08/17/17 08/18/17 Range/Units 14:57 04:32 Sodium 139 (134-144) MEQ/L Potassium 4.2 D 3.8 (3.6-5) MEQ/L Chloride 104 D (98-107) MEQ/L Carbon Dioxide 26 (22-30) MEQ/L BUN 17.0 (7-17) MG/DL Creatinine 0.7 (0.7-1.2) mg/dL Glucose 94 (65-110) MG/DL Calcium 7.8 L (8.4-10.2) MG/DL Intake and Output 08/17/17 08/18/17 08/18/17 22:59 06:59 14:59 Intake Total 550 / 550 50 / 50 Output Total 500 / 500 600 / 600 Balance 50 / 50 -550 / -550 Intake: Oral 550 / 550 50 / 50 Output: Urine 500 / 500 600 / 600 Other: Urine Appearance Clear Clear Clear Urine Color Yellow Yellow Yellow Urine Odor Normal Normal Stool Color Brown Brown Stool Consistency Soft Soft Size of Bowel Movement Moderate # Voids 1 1 1 # Bowel Movements 1 1 Weight 116 lb 9.992 oz Patient Weight 08/19/17 06:59 Weight 116 lb 9.992 oz - Imaging and Cardiology Imaging & Cardiology Narrative: Date of Exam: 08/17/17 Ordering Provider: Negar Hernandez APRN Type of Exam(s): CT head/brain wo con Reason for Exam(s): syncope Indication: syncope PROCEDURE: CT head/brain wo con: Encounter: Initial Comparison: None Technique: Axial CT images through the head were performed without contrast. Iterative Reconstruction dose reducing technique was utilized. FINDINGS: Moderate generalized atrophy. The ventricles are of normal size, shape, and contour for the patient's age. There are extensive areas of low attenuation in the white matter which most likely represent changes from chronic microvascular ischemia. The brainstem, cerebellum, and cerebral hemispheres otherwise have a normal morphology and CT attenuation. There is no evidence of midline displacement. No hemorrhage, signs of acute territorial stroke, mass effect, mass lesions, or edema is evident. The visualized portions of the skull base, midface, and calvarium demonstrate no abnormality. Mild scattered sinus disease. The tympanic and mastoid cavities appear normal. IMPRESSION: No acute intracranial abnormality or hemorrhage. 08/18/17 13:05 08/18/17 13:05 Date of Exam: 08/17/17 Ordering Provider: Negar Hernandez APRN Type of Exam(s): US carotid doppler BI Reason for Exam(s): syncope Indication: syncope PROCEDURE: US carotid doppler BI: TECHNIQUE: Grayscale, color and duplex Doppler imaging was performed of the carotid systems bilaterally. Velocities in cm/sec - validated velocity measurements with angiographic measurements, velocity criteria are extrapolated from diameter data as defined by the Society of Radiologists in Ultrasound Consensus Conference Radiology 2003; 229;340-346. RIGHT: PSV ICA 74.2 EDV ICA 20.4 PSV CCA 52.4 EDV CCA 14.2 PSV ECA 86.6 ICA Diameter reduction 10-30% LEFT: PSV ICA 74.2 EDV ICA 26.7 PSV CCA 80.4 EDV CCA 20.2 PSV ECA 125 ICA Diameter reduction <20% (0.8-1.0)% The right vertebral artery is patent with cephalic flow. The left vertebral artery is patent with cephalic flow. Mild atherosclerotic plaque for age. IMPRESSION: No hemodynamically significant carotid stenosis. Assessment and Plan - Assessment and Plan (1) Atrial fibrillation with RVR Status: Acute (2) Hypokalemia Status: Acute (3) Rheumatoid arthritis Status: Chronic (4) Syncope Status: Acute - Assessment and Plan 08/15/17 Syncope: Hold diuretics -2D echo: Normal LV systolic function with ejection fraction of 62%, Biatrial dilation, Concentric left ventricular hypertrophy, Mitral annulus calcification with mild mitral regurgitation, Aortic sclerosis, Moderate tricuspid regurgitation with normal estimated pulmonary artery systolic pressure of 30, Mild pulmonary insufficiency. A Fib with RVR: NPO at midnight for DCCV tomorrow am - Continue Eliquis for anticoagulation - 2D echo - TSH and Mag - EKG if converts Hypokalemia: Replace potassium - Monitor electrolytes RA Thank you for allowing us to participate in the care of this patient. 08/16/17 Successful DCCV with 360 J to NS - Later junctional and about 2 hrs post returned to A Fib 08/17/17 Remains in atrial fibrillation, rate controlled - Stop Amiodarone drip - Does not want ablation - Continue Metoprolol and Eliquis K+ 2.9 - Replace potassium 08/18/17 Rate well controlled with Metoprolol. Continue Eliquis - Does not need diuretic on discharge, will follow up with Dr. Davis in 2 weeks Hospital Course Summary Disclaimer: The visit summary below is not to be considered part of the above Progress Note. Hospital Course: 08/15/17 Admit, observation status. Trend troponin x3; monitor rhythm on telemetry. Continue metoprolol and diltiazem for rate control. Check TSH. Consult Dr. Davis - discussed with Henny Rousseau APRN. Also inquired about medications, as she is on both a thiazide and loop diuretic. Question whether or not elevated CO2 is r/t diuretic use (perhaps over-diuresed? ). Will give another 500 mL of NS. Monitor respiratory status closely - she had bibasilar crackles on exam but review of CXR showed bronchiectasis to lung bases ; possible bronchitis; possible infiltrate to right lung base (though other than cough since March, pt does not have clinical symptoms of pneumonia). Zofran PRN nausea. Hypokalemia - IV bolus ordered. Check magnesium level. Hold Lasix for now. Recheck BMP at next troponin draw. Hypercalcemia - recheck tomorrow am following IVF; will hold chlorthalidone as well which may also cause hypercalcemia. Continue Eliquis for A-fib. Start Protonix d/t hx of GERD. Advanced directives: Son Saqib is DPOA. She has a living will. Requests DNR status and would like to have DNR order from Dr. José upon discharge back to [facility]. 08/16/17 Underwent successful cardioversion this am. Dr. Davis plans to start her on Amiodarone. K improved to 3.5 and will continue replacement orally. Mg 1.5 - will order IV replacement. CO2 improved to 30 (previously 35). Calcium is back to normal level 8.8. TSH was low at 0.32, will check free T4/T3. She is not on any thyroid replacement. Continue to hold diuretics for now. Dr. Longoria consulted for possible pulmonary fibrosis 2/2 methotrexate use. <Isiah Davis - Last Filed: 08/22/17 13:01> Exam Vital signs: Temperature 96.4 F L 08/19/17 07:34 Pulse Rate 82 08/19/17 08:00 Respiratory Rate 16 08/19/17 07:34 Blood Pressure 140/78 H 08/19/17 07:37 Pulse Oximetry 99 08/19/17 07:34 Inpatient Medications: Discontinued Medications Generic Name Dose Route Start Last Admin Trade Name Freq PRN Reason Stop Dose Admin Acetaminophen 1,000 mg 08/15/17 15:09 08/19/17 02:53 Tylenol PO 1,000 mg BID PRN Administration Pain Apixaban 2.5 mg 08/15/17 21:00 08/19/17 08:28 Eliquis PO 2.5 mg BID CRYSTAL Administration Calcium/Vitamin D 1 tab 08/18/17 21:00 08/19/17 08:27 Caltrate + D PO 1 tab BID CRYSTAL Administration Diltiazem HCl 180 mg 08/16/17 09:00 Cardizem Cd 180 Mg PO DAILY CRYSTAL Diphtheria/Tetanus/Acell Pertussis 0.5 ml 08/15/17 18:30 08/18/17 10:03 Adacel IM 08/15/17 18:31 Not Given .ONCE ONE Diphtheria/Tetanus/Acell Pertussis 0.5 ml 08/16/17 09:00 08/18/17 10:02 Adacel IM 08/16/17 09:01 Not Given .ONCE ONE Sodium Chloride 500 mls @ 500 mls/hr 08/15/17 11:04 08/15/17 11:44 Normal Saline IV 08/15/17 12:03 Infused .Q1H ONE Infusion Lidocaine HCl 10 mg/ Potassium 100 mls @ 100 mls/hr 08/15/17 15:15 08/15/17 21:00 Chloride 10 meq/ Sodium IV 08/15/17 19:28 Infused Chloride .Q1H CRYSTAL Infusion Sodium Chloride 500 mls @ 100 mls/hr 08/15/17 15:44 08/16/17 00:10 Normal Saline IV 08/15/17 20:43 Infused .Q5H ONE Infusion Magnesium Sulfate/Dextrose 1 gm in 100 mls @ 100 mls/hr 08/16/17 08:15 12:55 Mag Sulf 1gm Premix IV 08/16/17 10:14 Infused Q1H CRYSTAL Infusion Amiodarone HCl 900 mg/ Sodium 500 mls @ 16.66 mls/hr 08/16/17 15:00 08/17/17 10:44 Chloride IV Infused .Q24H CRYSTAL Infusion 0.5 MG/MIN Amiodarone HCl 450 mg/ Sodium 250 mls @ 33.33 mls/hr 08/16/17 09:00 08/16/17 20:05 Chloride IV 03/20/18 15:00 Infused .Q7H31M CRYSTAL Infusion 1 MG/MIN Amiodarone HCl 150 mg/ Sodium 103 mls @ 618 mls/hr 08/16/17 08:52 08/16/17 12 :13 Chloride IV 08/16/17 09:01 Infused O ONE Infusion Sodium Chloride 500 mls @ 500 mls/hr 08/16/17 10:45 08/16/17 11:45 Normal Saline IV 08/16/17 11:44 Infused .Q1H CRYSTAL Infusion Lidocaine HCl 10 mg/ Potassium 100 mls @ 100 mls/hr 08/17/17 08:15 08/17/17 14:20 Chloride 10 meq/ Sodium IV 08/17/17 12:28 Infused Chloride .Q1H CRYSTAL Infusion Sodium Chloride 500 mls @ 999.9 mls/hr 08/18/17 15:15 08/18/17 16:18 Normal Saline IV 08/18/17 15:44 Infused .Q30M CRYSTAL Infusion Methotrexate 20 mg 08/21/17 09:00 Methotrexate PO Q7D CRYSTAL Metoprolol Tartrate 50 mg 08/15/17 21:00 08/19/17 08:27 Lopressor PO 50 mg BID CRYSTAL Administration Midodrine 5 mg 08/18/17 15:00 08/19/17 11:14 Proamatine PO 5 mg 0700,1100,1500 CRYSTAL Administration Nitroglycerin 0.4 mg 08/16/17 15:58 Nitrostat SL Q5MIN3 PRN Angina Ondansetron HCl 4 mg 08/15/17 15:45 Zofran IVP Q6H PRN Nausea &/or vomiting Pantoprazole Sodium 20 mg 08/16/17 06:30 08/19/17 06:19 Protonix PO 20 mg ACB CRYSTAL Administration Potassium Chloride 40 meq 08/15/17 11:38 08/15/17 11:45 K-Dur 20 Meq Tablet PO 08/15/17 11:39 40 meq O ONE Administration Potassium Chloride 10 meq 08/16/17 16:00 08/18/17 10:17 K-Dur 10 Meq Tablet PO Not Given DAILY CRYSTAL Potassium Chloride 40 meq 08/17/17 09:00 08/17/17 09:12 K-Dur 20 Meq Tablet PO 40 meq WB CRYSTAL Administration Potassium Chloride 40 meq 08/17/17 17:30 08/19/17 08:27 K-Dur 20 Meq Tablet PO 40 meq BIDWM CRYSTAL Administration Sodium Chloride 10 - 80 ml 08/15/17 11:04 Iv Flush IVF PRN PRN Flushing Results 08/18/17 04:32 08/19/17 04:25 Assessment and Plan - Assessment and Plan (1) Atrial fibrillation with RVR Status: Acute (2) Rheumatoid arthritis Status: Chronic (3) Hypokalemia Status: Acute (4) Syncope Status: Acute - Attestation Attestation Narrative: 08/22/17 13:01 Recommendation After examining the patient I agree with the above assessment. I am involved in the formulation of the patient's plan of care. Hospital Course Summary Disclaimer: The visit summary below is not to be considered part of the above Progress Note.
--- NOTE | 2017-08-18 14:37 | Consultation ---
DATE OF CONSULTATION 08/19/[address] Goldman PATIENT'S CHIEF COMPLAINT Alteration of consciousness and fainting spells. 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 The patient has had several episodes of collapse and loss of consciousness upon going to the bathroom and standing and walking. This has been fairly frequent for the past week or so. The patient denies having any warning or dizziness prior to falling. Her loss of consciousness tends to last for less than a minute. She does not have any postictal confusion. She normally becomes weak and tired after the event and she has difficulty standing. She denies having any focal weakness or numbness. No vision loss and no coordination problem. She has been complaining of lower back pain which has been exacerbated after those falls. The patient's condition has been slowly improving during admission. She had a CT of the head that was unremarkable. She also had normal carotid Dopplers. Her aprn tried to cardiovert her A-Fib and this was not successful. The patient's lab showed some very low potassium level and calcium which has been improving since then. PHYSICAL EXAMINATION The patient was awake, alert, oriented x 3. Pupils were round, reactive and equal. Extraocular muscles were intact. Visual field was full. Speech was fluent. Motor examination was 4+/5 in all extremities and limited by severe arthritis in the hands and feet. The patient had multiple surgeries on her knees and hips to correct rheumatoid arthritis problems. Sensory examination was symmetrical for light touch and vibration sensation. Deep tendon reflexes were 2-/4. Plantar reflexes were equivocal bilaterally. Coordination for [id number] was slow bilaterally. There was no significant dysmetria problem. ASSESSMENT 1. Orthostatic hypotension induced syncope. This is a common problem in this age group, although the patient tends to have elevated blood pressure most of the time. 2. There is no evidence of stroke or seizure in the history and examination. PLAN 1. Consider adding midodrine 5-10 mg p.o. b.i.d. to help prevent orthostatic hypotension and syncope. This can be checked with the aprn first to get their approval. 2. Improve fluid intake and consider adding ТАТЬЯНА stockings to help with dizziness and orthostatic changes. 3. Slow change in position and try to spend some time on the side of the bed before standing, especially in the morning. 4. The patient may benefit from having some x-rays of her lumbar and thoracic spine to rule out any compression fracture problem that she may have from when she fell. 5. Obtain a B12 and folic acid level to check for risk for increased coordination problem and balance problems. CHHAYA
[2017-08-18] MEDS: MIDODRINE 5 MG TABLET PO SCH (15:37)
[2017-08-18] MEDS: ACETAMINOPHEN 500 MG TABLET PO PRN (15:37)
[2017-08-18] MEDS: CALCIUM 600 + VIT D 400 TABLET PO SCH (20:29)
[2017-08-19] MEDS: ACETAMINOPHEN 500 MG TABLET PO PRN (02:53)
[2017-08-19] MEDS: MIDODRINE 5 MG TABLET PO SCH ×2 (06:19→11:14)
[2017-08-19] MEDS: PANTOPRAZOLE 20 MG TABLET PO SCH (06:19)
[2017-08-19 07:34] VITALS: TEMP 96.4; O2SAT 99
[2017-08-19 07:38] VITALS: BP 140/78; PULSE 82
[2017-08-19] MEDS: CALCIUM 600 + VIT D 400 TABLET PO SCH (08:27)
[2017-08-19] MEDS: METOPROLOL TARTRATE 50 MG PO SCH (08:27)
[2017-08-19] MEDS: APIXABAN 2.5 MG PO SCH (08:28)
--- NOTE | 2017-08-19 11:07 | Pulmonology Progress Note ---
Subjective Principal diagnosis: AFib RVR Interval history: Pt. sitting up in the chair, states she wants to go home. Some cough with minimal sputum but feels it's better, no SOB noted. Exam Vital signs: Temperature 96.4 F L 08/19/17 07:34 Pulse Rate 82 08/19/17 08:00 Respiratory Rate 16 08/19/17 07:34 Blood Pressure 140/78 H 08/19/17 07:37 Pulse Oximetry 99 08/19/17 07:34 Inpatient Medications: Generic Name Dose Route Start Last Admin Trade Name [place] PRN Reason Stop Dose Admin Acetaminophen 1,000 mg 08/15/17 15:09 08/19/17 02:53 Tylenol PO 1,000 mg BID PRN Administration Pain Apixaban 2.5 mg 08/15/17 21:00 08/19/17 08:28 Eliquis PO 2.5 mg BID CRYSTAL Administration Calcium/Vitamin D 1 tab 08/18/17 21:00 08/19/17 08:27 Caltrate + D PO 1 tab BID CRYSTAL Administration Methotrexate 20 mg 08/21/17 09:00 Methotrexate PO Q7D CRYSTAL Metoprolol Tartrate 50 mg 08/15/17 21:00 08/19/17 08:27 Lopressor PO 50 mg BID CRYSTAL Administration Midodrine 5 mg 08/18/17 15:00 08/19/17 06:19 Proamatine PO 5 mg 0700,1100,1500 CRYSTAL Administration Nitroglycerin 0.4 mg 08/16/17 15:58 Nitrostat SL Q5MIN3 PRN Angina Ondansetron HCl 4 mg 08/15/17 15:45 Zofran IVP Q6H PRN Nausea &/or vomiting Pantoprazole Sodium 20 mg 08/16/17 06:30 08/19/17 06:19 Protonix PO 20 mg ACB CRYSTAL Administration Potassium Chloride 40 meq 08/17/17 17:30 08/19/17 08:27 K-Dur 20 Meq Tablet PO 40 meq BIDWM CRYSTAL Administration Sodium Chloride 10 - 80 ml 08/15/17 11:04 Iv Flush IVF PRN PRN Flushing Discontinued Medications Generic Name Dose Route Start Last Admin Trade Name Freq PRN Reason Stop Dose Admin Diltiazem HCl 180 mg 08/16/17 09:00 Cardizem Cd 180 Mg PO DAILY CRYSTAL Diphtheria/Tetanus/Acell Pertussis 0.5 ml 08/15/17 18:30 08/18/17 10:03 Adacel IM 08/15/17 18:31 Not Given .ONCE ONE Diphtheria/Tetanus/Acell Pertussis 0.5 ml 08/16/17 09:00 08/18/17 10:02 Adacel IM 08/16/17 09:01 Not Given .ONCE ONE Sodium Chloride 500 mls @ 500 mls/hr 08/15/17 11:04 08/15/17 11:44 Normal Saline IV 08/15/17 12:03 Infused .Q1H ONE Infusion Lidocaine HCl 10 mg/ Potassium 100 mls @ 100 mls/hr 08/15/17 15:15 08/15/17 21:00 Chloride 10 meq/ Sodium IV 08/15/17 19:28 Infused Chloride .Q1H CRYSTAL Infusion Sodium Chloride 500 mls @ 100 mls/hr 08/15/17 15:44 08/16/17 00:10 Normal Saline IV 08/15/17 20:43 Infused .Q5H ONE Infusion Magnesium Sulfate/Dextrose 1 gm in 100 mls @ 100 mls/hr 08/16/17 08:15 12:55 Mag Sulf 1gm Premix IV 08/16/17 10:14 Infused Q1H CRYSTAL Infusion Amiodarone HCl 900 mg/ Sodium 500 mls @ 16.66 mls/hr 08/16/17 15:00 08/17/17 10:44 Chloride IV Infused .Q24H CRYSTAL Infusion 0.5 MG/MIN Amiodarone HCl 450 mg/ Sodium 250 mls @ 33.33 mls/hr 08/16/17 09:00 08/16/17 20:05 Chloride IV 08/16/17 15:00 Infused .Q7H31M CRYSTAL Infusion 1 MG/MIN Amiodarone HCl 150 mg/ Sodium 103 mls @ 618 mls/hr 08/16/17 08:52 08/16/17 12 :13 Chloride IV 08/16/17 09:01 Infused O ONE Infusion Sodium Chloride 500 mls @ 500 mls/hr 08/16/17 10:45 08/16/17 11:45 Normal Saline IV 08/16/17 11:44 Infused .Q1H CRYSTAL Infusion Lidocaine HCl 10 mg/ Potassium 100 mls @ 100 mls/hr 08/17/17 08:15 08/17/17 14:20 Chloride 10 meq/ Sodium IV 08/17/17 12:28 Infused Chloride .Q1H CRYSTAL Infusion Sodium Chloride 500 mls @ 999.9 mls/hr 08/18/17 15:15 08/18/17 16:18 Normal Saline IV 08/18/17 15:44 Infused .Q30M CRYSTAL Infusion Potassium Chloride 40 meq 08/15/17 11:38 08/15/17 11:45 K-Dur 20 Meq Tablet PO 08/15/17 11:39 40 meq O ONE Administration Potassium Chloride 10 meq 08/16/17 16:00 08/18/17 10:17 K-Dur 10 Meq Tablet PO Not Given DAILY CRYSTAL Potassium Chloride 40 meq 08/17/17 09:00 08/17/17 09:12 K-Dur 20 Meq Tablet PO 40 meq WB CRYSTAL Administration - Constitutional no acute distress, well nourished, well developed, cooperative - Routine HEENT Exam Head: Present: normocephalic, atraumatic Eye: Present: EOMI, PERRL ENT: Present: mucous membranes moist - Routine Neck Exam Present: supple, full ROM, trachea midline - Routine Respiratory Exam Present: crackles. Absent: accessory muscle use, patient mechanically ventilated Comments: crackles bases - Routine Cardiovascular Exam Present: S1, S2, irregular rhythm - Routine Abdominal Exam Present: soft, normoactive bowel sounds - Routine Extremities Exam Present: no edema, non tender, full ROM. Absent: cyanosis, clubbing - Routine Back/Spine/Pelvis Exam Back/Spine: Present: full ROM - Routine Skin Exam Present: intact, dry, rash Comments: rash to back - Routine Neurological Exam Present: alert, oriented X3, CN II-XII intact - Routine Psychiatric Exam Present: normal affect, normal thought process, good judgment Results - Laboratory Findings Laboratory: Laboratory Results - last 48 hr 08/17/17 08/18/17 08/18/17 14:57 04:32 04:32 WBC 3.3 L RBC 3.58 L Hgb 11.3 L Hct 34.6 L MCV 96.6 MCH 31.6 MCHC 32.7 RDW Std Deviation 53.1 H Plt Count 178 MPV 10.7 Immature Gran % (Auto) 0.3 Neut % (Auto) 64.8 Lymph % (Auto) 23.5 [place] % (Auto) 7.2 Eos % (Auto) 3.9 Baso % (Auto) 0.3 Neut # (Auto) 2.2 Lymph # (Auto) 0.8 L [place] # (Auto) 0.2 Eos # (Auto) 0.1 Baso # (Auto) 0.0 Abs Immat Gran (auto) 0.01 Turbidity < 20 Sodium 139 Potassium 4.2 D 3.8 Chloride 104 D Carbon Dioxide 26 Anion Gap 9 BUN 17.0 Creatinine 0.7 GFR Calculation 80 BUN/Creatinine Ratio 24 Glucose 94 Calculated Osmolality 270 Calcium 7.8 L Magnesium 1.9 Icterus Index < 2 Vitamin B12 Folate Specimen Hemolysis < 15 < 15 Stool Occult Blood Stl Cyclospora species Stool Rotavirus A PCR Stool Adenovirus (PCR) Stool Astrovirus (PCR) Stool Campylobacter PCR Stl C.difficile Tox PCR Stool Cryptosporidium PCR Stl E.coli Shiga Toxins Stl Enterotoxigenic E PCR Stool EPEC (PCR) Stool EAEC (PCR) Stool Entamoeba (PCR) Stool Giardia Lamblia PCR Stool Salmonella PCR Stool Sapovirus (PCR) Stl P. shigelloides PCR Stl Shigella/EIEC PCR St Y.enterocolitica PCR Stool Vibrio (PCR) Stl Vibrio cholera PCR Stl Norovirus GI/GII PCR 08/18/17 08/18/17 08/18/17 04:32 18:41 18:41 WBC RBC Hgb Hct MCV MCH MCHC RDW Std Deviation Plt Count MPV Immature Gran % (Auto) Neut % (Auto) Lymph % (Auto) [place] % (Auto) Eos % (Auto) Baso % (Auto) Neut # (Auto) Lymph # (Auto) [place] # (Auto) Eos # (Auto) Baso # (Auto) Abs Immat Gran (auto) Turbidity Sodium Potassium Chloride Carbon Dioxide Anion Gap BUN Creatinine GFR Calculation BUN/Creatinine Ratio Glucose Calculated Osmolality Calcium Magnesium Icterus Index Vitamin B12 955 H Folate 12.3 Specimen Hemolysis Stool Occult Blood Negative Stl Cyclospora species Negative Stool Rotavirus A PCR Negative Stool Adenovirus (PCR) Negative Stool Astrovirus (PCR) Negative Stool Campylobacter PCR Negative Stl C.difficile Tox PCR Negative Stool Cryptosporidium PCR Negative Stl E.coli Shiga Toxins Negative Stl Enterotoxigenic E PCR Negative Stool EPEC (PCR) Negative Stool EAEC (PCR) Negative Stool Entamoeba (PCR) Negative Stool Giardia Lamblia PCR Negative Stool Salmonella PCR Negative Stool Sapovirus (PCR) Negative Stl P. shigelloides PCR Negative Stl Shigella/EIEC PCR Negative St Y.enterocolitica PCR Negative Stool Vibrio (PCR) Negative Stl Vibrio cholera PCR Negative Stl Norovirus GI/GII PCR Negative 08/19/17 04:25 WBC RBC Hgb Hct MCV MCH MCHC RDW Std Deviation Plt Count MPV Immature Gran % (Auto) Neut % (Auto) Lymph % (Auto) [place] % (Auto) Eos % (Auto) Baso % (Auto) Neut # (Auto) Lymph # (Auto) [place] # (Auto) Eos # (Auto) Baso # (Auto) Abs Immat Gran (auto) Turbidity < 20 Sodium 138 Potassium 4.4 Chloride 103 Carbon Dioxide 26 Anion Gap 9 BUN 17.0 Creatinine 0.7 GFR Calculation 80 BUN/Creatinine Ratio 24 Glucose 90 Calculated Osmolality 268 Calcium 7.8 L Magnesium 1.7 Icterus Index < 2 Vitamin B12 Folate Specimen Hemolysis < 15 Stool Occult Blood Stl Cyclospora species Stool Rotavirus A PCR Stool Adenovirus (PCR) Stool Astrovirus (PCR) Stool Campylobacter PCR Stl C.difficile Tox PCR Stool Cryptosporidium PCR Stl E.coli Shiga Toxins Stl Enterotoxigenic E PCR Stool EPEC (PCR) Stool EAEC (PCR) Stool Entamoeba (PCR) Stool Giardia Lamblia PCR Stool Salmonella PCR Stool Sapovirus (PCR) Stl P. shigelloides PCR Stl Shigella/EIEC PCR St Y.enterocolitica PCR Stool Vibrio (PCR) Stl Vibrio cholera PCR Stl Norovirus GI/GII PCR Assessment and Plan - Assessment and Plan Abnormal CT with bilateral small nodules A-fib with RVR - s/p cardioversion RA Syncope Hypokalemia Plan: Pt curently on RA, s/p cardioversion on 08/16 unfortunately back into atrial fib off Amio gtt, treatment per CV. High res CT with no acute concern of MTX toxicity. Bilateral small nodules noted, likely require follow-up CT. Need PFT but wants to do OP with f/u, if obstructive likely cause of cough secondary to bronchiectasis. Likely home soon, KCL 4.4 today, midodrine started for hypotension. - Time Spent With Patient Total time spent is greater than 50% in coordination of care (as documented) at patient's floor/unit and/or counseling patient: less than 15 minutes
--- NOTE | 2017-08-19 12:09 | Progress Note ---
- Date 08/19/17 Subjective: F/U: Syncope, hypokalemia Doing well today. Has been up ambulating in halls without difficulty-not feeling SOA with activities or having palpitations. Not dizzy or unsteady with positional changes. No chest pressure or discomfort. Eating well. Urinating well. No f/c. Objective Vital signs: Temperature 96.4 F L 08/19/17 07:34 Pulse Rate 82 08/19/17 08:00 Respiratory Rate 16 08/19/17 07:34 Blood Pressure 140/78 H 08/19/17 07:37 Pulse Oximetry 99 08/19/17 07:34 Height/Weight/BMI: Weight 53.9 kg - Constitutional Present: no acute distress, well nourished, well developed, average body habitus , cooperative - Routine HEENT Exam Head: Present: normocephalic, atraumatic Eye: Present: EOMI, PERRL ENT: Present: mucous membranes moist - Routine Respiratory Exam Present: decreased breath sounds. Absent: rales, respiratory distress, rhonchi - Routine Cardiovascular Exam Present: no murmur, irregular rhythm, irregularly irregular - Routine Abdominal Exam Present: soft, normoactive bowel sounds, non distended, non tender - Routine Extremities Exam Present: no edema. Absent: cyanosis, clubbing - Routine Musculoskeletal Exam Musculoskeletal: Present: no clubbing or cyanosis, normal strength - Routine Skin Exam Present: dry, warm - Routine Neurological Exam Present: alert, oriented X3, CN II-XII intact, moving all extremities, vision grossly intact, hearing grossly intact, normal speech. Absent: motor deficit, altered mental status - Routine Psychiatric Exam Present: normal affect, normal thought process, cooperative, good insight, good judgment Results - Labs CBC & Chem 7: 08/18/17 04:32 08/19/17 04:25 Assessment and Plan (1) Syncope Current visit: Yes Status: Acute Assessment and Plan: IMPRESSION Syncope x3 Severe hypokalemia [2.6], POA Hypercalcemia [10.5], POA, resolved with IVF Elevated CO2 [35], POA Nausea S/P DCCV on 08/16/17 with brief conversion to sinus with PACs/PVCs, currently back in A. fib Scattered small pulmonary nodules Leukopenia, suspect secondary to methotrexate use CHRONIC AND ASSOCIATED CONDITIONS Chronic A-fib, on Eliquis Rheumatoid arthritis, on Methotrexate Osteoporosis Anemia, chronic (usually hgb in the 10s) GERD Depression PLAN Medically much improved. No orthostatic change. BP and HR stable. Potassium normalized. Ambulating well. Will discharge to home. Stop furosemide and chlorthalidone. Continue Midodrine to decrease potential for orthostatic change. Will decrease potassium to 10mEq once a day with breakfast - potassium 4.4 today and patient's diuretics stopped. F/U with Dr José in 1 week - would recommend rechecking BMP at that time secondary to medication use and recent hypokalemia. F/U with Dr Longoria in ~2 weeks - will need outpatient PFT in about 1 week. F/U with Dr Davis in 3 weeks for cardiac evaluation. See orders for details. Case discussed with cardiology and CM. Time spent with patient's care and discharge greater than 30 minutes. DVT Prophylaxis: Eliquis Resuscitation Status: Do Not Resuscitate - Physician Narrative Physician: Clovis Dover MD Narrative: Date: 08/19/17 Time: 1206 Hospital Course Summary Disclaimer: The visit summary below is not to be considered part of the above Progress Note. Hospital Course: 08/15/17 Admit, observation status. Trend troponin x3; monitor rhythm on telemetry. Continue metoprolol and diltiazem for rate control. Check TSH. Consult Dr. Davis - discussed with Henny Rousseau APRN. Also inquired about medications, as she is on both a thiazide and loop diuretic. Question whether or not elevated CO2 is r/t diuretic use (perhaps over-diuresed? ). Will give another 500 mL of NS. Monitor respiratory status closely - she had bibasilar crackles on exam but review of CXR showed bronchiectasis to lung bases ; possible bronchitis; possible infiltrate to right lung base (though other than cough since March, pt does not have clinical symptoms of pneumonia). Zofran PRN nausea. Hypokalemia - IV bolus ordered. Check magnesium level. Hold Lasix for now. Recheck BMP at next troponin draw. Hypercalcemia - recheck tomorrow am following IVF; will hold chlorthalidone as well which may also cause hypercalcemia. Continue Eliquis for A-fib. Start Protonix d/t hx of GERD. Advanced directives: Son Dough is DPOA. She has a living will. Requests DNR status and would like to have DNR order from Dr. José upon discharge back to [facility]. 08/16/17 Underwent successful cardioversion this am. Dr. Davis plans to start her on Amiodarone. K improved to 3.5 and will continue replacement orally. Mg 1.5 - will order IV replacement. CO2 improved to 30 (previously 35). Calcium is back to normal level 8.8. TSH was low at 0.32, will check free T4/T3. She is not on any thyroid replacement. Continue to hold diuretics for now. Dr. Longoria consulted for possible pulmonary fibrosis 2/2 methotrexate use. 08/17/17 Patient is back in A. fib, so the goals are rate control versus rhythm control; amiodarone discontinued. Cardiology offered ablation, but the patient is not interested. Continue metoprolol and Eliquis. Diuretics have not been resumed. Potassium decreased to 2.9 after being corrected up to 3.5. Will replace IV, then will begin her on higher oral doses of K-Dur. Magnesium level is stable at 2.0. Free T3 and free T4 pending. Hemoglobin decreased to 10.[address] Longoria has evaluated the patient in and will be getting PFTs. He did not find any evidence of drug-induced pulmonary toxicity. Her chest CT showed scattered small pulmonary nodules that will require follow- up. 08/18/[address] and carotid Doppler were neg. Dr. Cruz was consulted, concerned that syncopal events are caused by low BP and recommends starting Midodrine. Also recommends check vitamin B12 and folic acid. She is having some variable BP readings and is inconsistently orthostatic but this seems to be improving. Discussed with Henny Rousseau APRN - she will talk with Dr. Davis regarding diuretic therapy. She did not have objections to Midodrine. Hypocalcemia - start Ca + Vit D. K stable at 3.8, though she is on much higher dose of KDur than she was at home. Consult PT/OT. Mirlande and her reside in [place] at [facility]. 08/19/17 Medically much improved. No orthostatic change. BP and HR stable. Potassium normalized. Ambulating well. Will discharge to home. Stop furosemide and chlorthalidone. Continue Midodrine to decrease potential for orthostatic change. Will decrease potassium to 10mEq once a day with breakfast - potassium 4.4 today and patient's diuretics stopped. F/U with Dr José in 1 week - would recommend rechecking BMP at that time secondary to medication use and recent hypokalemia. F/U with Dr Longoria in ~2 weeks - will need outpatient PFT in about 1 week. F/U with Dr Davis in 3 weeks for cardiac evaluation. See orders for details.
--- NOTE | 2017-08-19 13:14 | Discharge Summary ---
Discharge Information Date of admission: 08/16/17 10:26 Anticipated date of discharge: 08/19/17 Attending Physician: Clovis Dover MD Primary care physician: Efrem José MD Consults: Physician Consult: Dr Davis Physician Consult: Dr Longoria Physician Consult: Urmila Cruz Reason For Exam: syncopal events x3 PT/OT - Discharge Diagnosis (1) Syncope Status: Acute Admission diagnosis Syncope Hypokalemia Discharge diagnosis Hypokalemia Associated conditions and complications Syncope x3 Hypercalcemia [10.5], POA, resolved with IVF Elevated CO2 [35], POA Nausea S/P DCCV on 08/16/17 with brief conversion to sinus with PACs/PVCs, currently back in A. fib Scattered small pulmonary nodules Leukopenia, suspect secondary to methotrexate use Chronic A-fib, on Eliquis Rheumatoid arthritis, on Methotrexate Osteoporosis Anemia, chronic (usually hgb in the 10s) GERD Depression - Procedures Procedures: Date of Exam: 08/15/17 Type of Exam: US ECHO Doppler complete Left atrial dimension is increased. Left ventricular end-diastolic dimension is normal. Left ventricle wall thickness is increased. LV systolic function is normal with ejection fraction of 62%. Right atrium is dilated. Right ventricle is normal. Aortic root dimension is normal. Mitral annulus is calcified. Mitral valve leaflets are normal with mild mitral regurgitation. Aortic valve shows fibrocalcific changes with no stenosis or insufficiency. Tricuspid valve shows moderate tricuspid regurgitation with normal estimated pulmonary artery systolic pressure of 30. Pulmonary valve shows mild pulmonary insufficiency. There is no pericardial effusion. IMPRESSION 1. Normal LV systolic function with ejection fraction of 62%. 2. Biatrial dilation. 3. Concentric left ventricular hypertrophy. 4. Mitral annulus calcification with mild mitral regurgitation. 5. Aortic sclerosis. 6. Moderate tricuspid regurgitation with normal estimated pulmonary artery systolic pressure of 30. 7. Mild pulmonary insufficiency. DATE OF PROCEDURE: August 16, 2017 PROCEDURE: DC cardioversion. Conscious sedation was performed using Versed and fentanyl. Anterior-posterior Zoll pads were applied. 360 joules of energy was delivered in a synchronized manner and patient converted from atrial fibrillation to sinus/ectopic atrial rhythm. She tolerated the procedure well with no complications. IMPRESSION 1. Successful DC cardioversion of atrial fibrillation to sinus rhythm. PLAN Will keep her on chronic anticoagulation and start her on antiarrhythmics to maintain sinus. - Laboratory Labs: Admit Lab 08/15/17 11:13 WBC 5.8 Hgb 12.2 Hct 37.1 MCV 96.6 Plt Count 216 Neut % (Auto) 71.9 H Lymph % (Auto) 12.1 L Eos % (Auto) 0.2 Baso % (Auto) 0.2 Admit Lab 08/15/17 11:13 Sodium 139 Potassium 2.6 L* Chloride 91 L Carbon Dioxide 35 H Anion Gap 13 BUN 26.0 H Creatinine 0.8 GFR Calculation 68 BUN/Creatinine Ratio 33 H Glucose 108 Calculated Osmolality 274 Calcium 10.5 H Laboratory Tests 08/15/17 08/18/17 15:44 04:32 Vitamin B12 955 H Folate 12.3 TSH 0.32 L Laboratory Tests 08/18/17 18:41 Stool Occult Blood Negative 08/18/17 04:32 08/19/17 04:25 - Radiology Radiology: Date of Exam: 08/15/17 Type of Exam: XR chest 1V FINDINGS: The lung lemus are hyperinflated. There are increased interstitial markings bilaterally that appear chronic. There is increase in the central bronchovascular markings with peribronchial cuffing. Bronchiectasis is seen at the lung bases. There is a possible early acute infiltrate in the medial right lung base. The heart remains within normal limits size. There is no evidence mediastinal widening in the trachea is midline. The pulmonary vascularity is normal. The costophrenic angles are clear. The bony thorax is stable again showing degenerative changes and an old healed left proximal humerus fracture. No definite acute traumatic variation is identified involving the bony thorax. There are old healed left-sided rib fracture deformities. Surgical clips are again seen under the right hemidiaphragm. IMPRESSION: 1. Chronic emphysematous lung changes with changes suggesting an acute superimposed bronchitis. 2. Minimal acute infiltrate is suggested in the medial right lung base. 3. Bony thorax shows no obvious acute traumatic variation. ---- Date of Exam: 08/15/17 Type of Exam: CT chest high res Findings: Mild reticular subpleural changes in the right lower lobe. A couple small subpleural tags on the order of 2 to 3 mm in size in the right upper lobe. Slightly larger subpleural nodule in the right upper lobe on axial image # 20 measuring 4 mm in size. Small subpleural times in the right middle lobe as well. Calcified granuloma in the right lower lobe near the costophrenic angle. Small blebs in the right upper lobe. Region of scarring in the lingula. Noncalcified 4-mm nodule in the left upper lobe on image #20. Left lower lobe nodule on image 48 measuring 4 to 5 mm in size appears noncalcified as well. No acute consolidative pneumonia. No pleural effusion or pneumothorax. No axillary or mediastinal adenopathy. Enlarged multinodular thyroid gland. Heart is severely enlarged without pericardial effusion. The upper abdomen shows no acute findings. Impression: 1. Areas of senescent change and mild subpleural scarring in the lungs. This does not have the appearance of significant pulmonary fibrosis or interstitial lung disease. 2. Scattered small pulmonary nodules probably representing granulomas. ------ Date of Exam: 08/17/17 Type of Exam: US carotid Doppler BI The right vertebral artery is patent with cephalic flow. The left vertebral artery is patent with cephalic flow. Mild atherosclerotic plaque for age. IMPRESSION: No hemodynamically significant carotid stenosis. --------- Date of Exam: 08/17/17 Type of Exam: CT head/brain wo con FINDINGS: Moderate generalized atrophy. The ventricles are of normal size, shape , and contour for the patient's age. There are extensive areas of low attenuation in the white matter which most likely represent changes from chronic microvascular ischemia. The brainstem, cerebellum, and cerebral hemispheres otherwise have a normal morphology and CT attenuation. There is no evidence of midline displacement. No hemorrhage, signs of acute territorial stroke, mass effect, mass lesions, or edema is evident. The visualized portions of the skull base, midface, and calvarium demonstrate no abnormality. Mild scattered sinus disease. The tympanic and mastoid cavities appear normal. IMPRESSION: No acute intracranial abnormality or hemorrhage. History of Present Illness HPI: Mirlande Sam is an 86 year old woman who sees Dr. Davis for A-fib, which was diagnosed on 04/20/17. She had a syncopal episode that day, during which she had nausea, diaphoresis, chest pain, and shortness of breath. She was admitted and had an echo which showed an EF of 65% and heart catheterization that was negative for significant coronary disease (stenting was not indicated) . She was started on Eliquis at that time, as well as a beta brigitte for rate control. She had been getting along well at home, until the evening of 08/14/17, when she vomited after eating a peanut butter sandwich. She did not have any chest pain, dyspnea, dizziness, or diaphoresis at that time. She went to bed, and twice during the night, as she was walking back to her bed from the bathroom , she "blacked out". Around 1000 on 08/15/17, as she was walking towards the table, it happened again. Unlike the March syncopal event, she had no prodrome at all. She believes that she was unconscious for about a minute each time. She felt a little short of breath when she awoke, but her dyspnea completely resolved after a few minutes. She has small abrasions to her right wrist, which she thinks she injured after passing out early this morning (she tends to bruise/bleed easily since she's on Eliquis). She occasionally has palpitations. She hasn't eaten anything today but denies abdominal pain or nausea. She admits to having a poor appetite, however. She denies any visual changes (ie blurred or double vision), headaches, paresthesias, or stroke-like symptoms. She has had a predominantly nonproductive cough for the last month, without associated fever/chills, congestion, or sore throat. She denies diarrhea or constipation. She denies dysuria. She has not had leg swelling. She recently finished up seeing PT for her back. She has joint deformities secondary to rheumatoid arthritis, for which she takes methotrexate. 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 Following the 3rd syncopal event, 911 was activated and she was transported to [facility] ED. She was tachycardic with a rate of 121 and was given NS bolus 500 mL. She was afebrile and normotensive. She was found to be severely hypokalemic at 2.6 and received oral potassium. CBC and UA were unremarkable. CXR showed possible bronchitis, possible acute infiltrate to right lung base. Her PCP, Dr. José, was contacted from the ED. Concerned about Mirlande' 's recent decline, combined with hypokalemia and syncopal events, recommended admission. Therefore, the hospitalist service was contacted and accepted the patient to observation status. For complete details of the H&P refer to that document. Objective Vital signs: Temperature 96.4 F L 08/19/17 07:34 Pulse Rate 82 08/19/17 08:00 Respiratory Rate 16 08/19/17 07:34 Blood Pressure 140/78 H 08/19/17 07:37 Pulse Oximetry 99 08/19/17 07:34 Height/Weight/BMI: Weight 53.9 kg Hospital Course This is a general summary of the patient's hospital course. For more details refer to the complete medical record. Hospital course: 08/15/17 Admit, observation status. Trend troponin x3; monitor rhythm on telemetry. Continue metoprolol and diltiazem for rate control. Check TSH. Consult Dr. Davis - discussed with Henny Rousseau APRN. Also inquired about medications, as she is on both a thiazide and loop diuretic. Question whether or not elevated CO2 is r/t diuretic use (perhaps over-diuresed? ). Will give another 500 mL of NS. Monitor respiratory status closely - she had bibasilar crackles on exam but review of CXR showed bronchiectasis to lung bases ; possible bronchitis; possible infiltrate to right lung base (though other than cough since March, pt does not have clinical symptoms of pneumonia). Zofran PRN nausea. Hypokalemia - IV bolus ordered. Check magnesium level. Hold Lasix for now. Recheck BMP at next troponin draw. Hypercalcemia - recheck tomorrow am following IVF; will hold chlorthalidone as well which may also cause hypercalcemia. Continue Eliquis for A-fib. Start Protonix d/t hx of GERD. Advanced directives: Son Saqib is DPOA. She has a living will. Requests DNR status and would like to have DNR order from Dr. José upon discharge back to [facility]. 08/16/17 Underwent successful cardioversion this am. Dr. Davis plans to start her on Amiodarone. K improved to 3.5 and will continue replacement orally. Mg 1.5 - will order IV replacement. CO2 improved to 30 (previously 35). Calcium is back to normal level 8.8. TSH was low at 0.32, will check free T4/T3. She is not on any thyroid replacement. Continue to hold diuretics for now. Dr. Longoria consulted for possible pulmonary fibrosis 2/2 methotrexate use. 08/17/17 Patient is back in A. fib, so the goals are rate control versus rhythm control; amiodarone discontinued. Cardiology offered ablation, but the patient is not interested. Continue metoprolol and Eliquis. Diuretics have not been resumed. Potassium decreased to 2.9 after being corrected up to 3.5. Will replace IV, then will begin her on higher oral doses of K-Dur. Magnesium level is stable at 2.0. Hemoglobin decreased to 10.[address] Longoria has evaluated the patient in and will be getting PFTs. He did not find any evidence of drug-induced pulmonary toxicity. Her chest CT showed scattered small pulmonary nodules that will require follow- up. 08/18/[address] and carotid Doppler were neg. Dr. Cruz was consulted, concerned that syncopal events are caused by low BP and recommends starting Midodrine. Also recommends check vitamin B12 and folic acid. She is having some variable BP readings and is inconsistently orthostatic but this seems to be improving. Discussed with Henny Rousseau APRN - she will talk with Dr. Davis regarding diuretic therapy. She did not have objections to Midodrine. Hypocalcemia - start Ca + Vit D. K stable at 3.8, though she is on much higher dose of KDur than she was at home. Consult PT/OT. Mirlande and her reside in [place] at [facility]. 08/19/17 Medically much improved. No orthostatic change. BP and HR stable. Potassium normalized. Ambulating well. Will discharge to home - medically stable. Stop furosemide and chlorthalidone. Continue Midodrine to decrease potential for orthostatic change. Heart rate controlled with metoprolol. Diltiazem may be discontinued (home diltiazem not restarted during this hospitalization). Will decrease potassium to 10mEq once a day with breakfast - potassium 4.4 today and patient's diuretics stopped. Of note - Dr Goldman ([place]) did follow patient during hospitalization (as hospitalist); recommends that patient does NOT need antibiotics prior to her dental procedures. F/U with Dr José in 1 week - would recommend rechecking BMP at that time secondary to medication use and recent hypokalemia. F/U with Dr Longoria in ~2 weeks - will need outpatient PFT in about 1 week. F/U with Dr Davis in 3 weeks for cardiac evaluation. See orders for details. Time spent with patient: discharge greater than 30 minutes Resuscitation Status: Do Not Resuscitate Discharge Plan - Discharge Disposition Discharge Date: 08/19/17 Disposition: 01 Discharged Home, Self-Care *Condition: Improved Reason For Visit (Visit label in EMR): frequent falls - Discharge Medications *Discharge Medications: New Calcium 600 + D [Caltrate + D] 1 tab PO BID tab Midodrine [Proamatine] 5 mg PO 0700,1100,1500 #90 tab Continue Nitroglycerin [Nitrostat] 0.4 mg SL Q5MIN3 PRN #20 tab PRN Reason: Angina METHOTREXATE 2.5mg TAB [Methotrexate] 20 mg PO WEEKLY Potassium Chloride [K-DUR 10 mEq Tablet] 10 meq PO DAILY Metoprolol Tartrate 50 mg PO BID Apixaban [Eliquis] 2.5 mg PO BID #60 tab Acetaminophen [Acetaminophen Extra Strength] 1,000 mg PO BID PRN PRN Reason: Pain Discontinued dilTIAZem HCl [Dilt-Xr] 180 mg PO DAILY Furosemide [Lasix 20 mg Tab] 20 mg PO DAILY CephALEXin [Keflex 500 mg] 500 mg PO UNK Chlorthalidone 25 mg PO DAILY - Discharge Packet/Instructions *Diet: Low sodium *Activity: As tolerated. *Pain Management/Treatment: Continue prior pain medications *Wound Care: N/A *Expected Signs/Symptoms: Improvement of strength and functional abilities *Notify Physician if: Increasing dizziness/unsteadiness with positional changes. Rapid heart rate. *During Business Hours Contact: Dr José *After Business Hours Contact: Call [facility] and have your care provider contacted. *Pending Lab/Results: No Pending Lab - Referrals/Follow Up *Referrals/Follow Up: Efrem José MD [Family Provider] - 1 Week (Hospital follow up for syncopy and hypokalemia. Recommend recheck BMP at that visit secondary to medication use. ) Chaka Longoria MD [Physician] - 2 Weeks (Will need outpatient Pulmonary Function Testing in [address] Longoria in 2 weeks - [place] [facility]. ) Isiah Davis MD [Physician] - 3 Weeks (Hopsital follow up. ) - Patient Handouts Patient Handouts: Fall Prevention for Older Adults (GEN) - Dismissal Complete Discharge Instructions are:: Complete Physician Narrative - Narrative Physician: Clovsi Dover MD Attestation Narrative: Date: 08/19/17 Time: 1310 I have independently interviewed and examined patient prior to discharge. See my progress note from today for details. Medically stable for discharge to home.
[2017-08-21] MEDS ORDERED: METHOTREXATE 2.5MG TABLET PO SCH (09:00)
== END 2017-08-19 14:19 | disposition home or self-care (01) | DRG 312 ==
LOC: MED 10:46 → ED 10:46 → MED 14:15 → SUATTDRO 08-16 10:26
PROVIDERS: ADMIT Internal Medicine Infectious Disease; ATTEND Hospitalist